=== PATIENT | female | born 1985 | race African-American/Black ===

== ENCOUNTER 2019-07-14 15:30 | Emergency (ER) | payer OTHER, SELFPAY ==
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
[2019-07-14 15:52] VITALS: BP 134/95; PULSE 91; RESP 16; TEMP 36.7; O2SAT 100
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
--- NOTE | 2019-07-14 17:30 | PC.NURSE ---
Dose of tylenol missed per this RN at discharge
== END 2019-07-14 17:10 | disposition home or self-care (01) ==
PROVIDERS: Emergency Provider Emergency Medicine
DX: S29.012A Strain of muscle and tendon of back wall of thorax, initial encounter (principal); F17.200 Nicotine dependence, unspecified, uncomplicated; V49.40XA Driver injured in collision with unspecified motor vehicles in traffic accident, initial encounter
CPT/HCPCS: 71045; 71101; 99283

== ENCOUNTER 2020-06-25 10:22 | Emergency (ER) | payer OTHER, SELFPAY ==
[2020-06-25 10:49] VITALS: BP 119/81; PULSE 103; RESP 16; TEMP 36.4; O2SAT 100
[2020-06-25] MEDS: IBUPROFEN 600 MG TABLET PO (11:59)
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
[2020-06-25 12:15] VITALS: BP 124/68; PULSE 96; RESP 17; O2SAT 99
== END 2020-06-25 12:16 | disposition home or self-care (01) ==
PROVIDERS: Emergency Provider General Practice; PCP Family Medicine
DX: M54.6 Pain in thoracic spine (principal); V44.6XXA Car passenger injured in collision with heavy transport vehicle or bus in traffic accident, initial encounter
CPT/HCPCS: 99283; A9270

== ENCOUNTER 2021-07-14 08:31 | Outpatient (CLI) | payer BC, SELFPAY ==
--- NOTE | ~2021-07-14 | US_ITS ---
EXAMINATION: US soft tissue abdomen DATE: 07/14/2021 08:50 INDICATION: Periumbilical abdominal pain. Hernia surgery July 2019. TECHNIQUE: Multiple grayscale and Doppler ultrasound images of the abdomen were obtained. COMPARISON: None FINDINGS: In the periumbilical area, the anterior abdominal wall is thin. There is no specific eviden ce of a recurrent hernia. IMPRESSION: 1. Thin anterior abdominal wall without specific evidence of recurrent hernia.. If there is high clin ical suspicion for a recurrent hernia, consider CT. Reviewed, dictated and finalized at location A. 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 Thin anterior abdominal wall without specific evidence of recurrent hernia.. If there is high clinical suspicion for a recurrent hernia, consider CT.
== END 2021-07-14 08:32 | disposition home or self-care (01) ==
LOC: ANHIMG 08:35
PROVIDERS: PCP Family Medicine; Visit Provider Physician Assistant
DX: R10.33 Periumbilical pain (principal)
CPT/HCPCS: 76705

== ENCOUNTER 2022-05-09 08:42 | Emergency (ER) | payer BC, SELFPAY ==
--- NOTE | 2022-05-09 08:48 | ED.URI ---
HPI - URI/Sore Throat General Chief Complaint: Nausea/Vomiting/Diarrhea Stated Complaint: diarrhea/abd pain/pond/ear pain Time Seen by Provider: 05/09/22 08:48 Source: patient Mode of arrival: ambulatory Limitations: no limitations History of Present Illness HPI Narrative: Mohamud is a 36-year-old female patient presenting to clinic today with complaints of fever, chills, nausea, vomiting, diarrhea, headache, and ear pain x2 days. She reports that she may have been around some sick family members around [place]. States she has vomited twice and has had diarrhea stools every time she eats. MD elicited complaint: sore throat and nasal congestion Related Data Allergies Allergy/AdvReac Type Severity Reaction Status Date / Time No Known Allergies Allergy Verified 07/14/19 15:56 Review of Systems Review of Systems: Pertinent positives per HPI. Patient denies any fever, chills, rash, visual changes, dizziness, cough, shortness of breath, chest pain, palpitations, nausea, vomiting, diarrhea, constipation, or any urinary issues. [facility] Surgical History Surgical History History of myomectomy Social History Social History Smoking status: Current some day smoker Comments At the time of my signature, I reviewed and agree with the nursing past medical, surgical, social, and family history. There is no relevant family history pertinent to the patient complaint. Exam Narrative: General: Well-developed, well nourished, in no apparent distress Head: Normocephalic, atraumatic Eyes: Pupils equally round and reactive to light bilaterally, EOM intact, sclera and conjunctive clear, no discharge, lids normal Ears: TMs intact and clear, ear canals clear, no drainage, grossly hearing normal. Nose: Nares patent, no discharge, no inflammation, no sinus tenderness. Mouth: Oral pharynx without lesions or masses, good dentition, MMM. Neck: Supple, trachea midline, no enlargement of anterior or posterior cervical nodes, no thyroid masses or goiter palpable. Cardio: Regular rate and rhythm, s1 and s2 normal, no murmur appreciated. Resp: Clear to auscultation bilaterally, no rhonchi, rales, wheezing or rubs abdomen: Soft, pliable, bowel sounds present all 4 quadrants,generalized tenderness to palpation, no organomegaly, no CVAT tenderness Course Course Emergency Course: Portions of this record may have been created with voice recognition software. Level of Care: Express Care Visit Vital Signs Vital signs: Vital Signs Temperature 36.4 C 05/09/22 08:57 Pulse Rate 100 05/09/22 08:57 Respiratory Rate 16 05/09/22 08:57 Blood Pressure 118/76 05/09/22 08:57 Pulse Oximetry 100 05/09/22 08:57 Oxygen Delivery Room Air 05/09/22 08:57 Temperature 36.4 C 05/09/22 08:57 Pulse Rate 100 05/09/22 08:57 Respiratory Rate 16 05/09/22 08:57 Blood Pressure 118/76 05/09/22 08:57 Pulse Oximetry 100 05/09/22 08:57 Oxygen Delivery Room Air 05/09/22 08:57 Vital signs reviewed MDM - URI/Sore Throat MDM Narrative Medical decision making narrative: At the time of visit patient is resting comfortably on the exam table. Patient reports that she is currently nauseous. Zofran 4 mg ODT given in the clinic today. COVID and influenza testing were negative. I suspect patient has gastroenteritis, upper respiratory infection, viral syndrome. Prescription for prednisone and Zofran was given Differential Diagnosis Differential diagnosis: Likely upper respiratory infection, otitis media, sinusitis, viral infection, bronchitis, influenza, pharyngitis and other ( COVID) Lab Data Labs: Influenza A Screen Negative Reference Range: Negative Influenza B Screen Negative Reference Range: Negat
[2022-05-09 08:57] VITALS: BP 118/76; PULSE 100; RESP 16; TEMP 36.4; O2SAT 100
[2022-05-09] MEDS: ONDANSETRON HCL ODT 4 MG TABLET SUBLINGUAL (09:14)
== END 2022-05-09 09:34 | disposition home or self-care (01) ==
PROVIDERS: Emergency Provider Nurse Practitioner Family; PCP Family Medicine
DX: K52.9 Noninfective gastroenteritis and colitis, unspecified (principal); J06.9 Acute upper respiratory infection, unspecified; B34.9 Viral infection, unspecified; Z20.822 Contact with and (suspected) exposure to COVID-19; F17.290 Nicotine dependence, other tobacco product, uncomplicated
CPT/HCPCS: 87426; 87804; 99213; A9270; C9803; G0463

== ENCOUNTER 2022-10-01 08:52 | Outpatient (CLI) | payer BC, SELFPAY ==
--- NOTE | ~2022-10-01 | MMUS_ITS ---
EXAMINATION: MM diagnostic faizan BI w duncan, US breast BI limited HISTORY: Bilateral breast pain and mass of the lower right breast. TECHNIQUE: Craniocaudal, mediolateral, and mediolateral oblique 3-D tomosynthesis images of the cordelia ts were performed and synthetic 2-D images were generated. CAD analysis was submitted and interpreted . High resolution limited bilateral breast ultrasound was performed. COMPARISON: No prior mammogram is currently available for comparison. BREAST PARENCHYMAL COMPOSITION: The breasts are heterogeneously dense, which may obscure small masses . FINDINGS: MAMMOGRAPHIC FINDINGS: Right breast: There is a 2.1 x 1.5 cm oval, circumscribed, equal density mass in the posterior third of the lower inner breast at the 5:00 location, 12 cm from the nipple. A 1.3 x 0.9 cm mass with simil ar mammographic features is present in the middle third of the breast at the 4:00 location in the inn er breast 5 cm from the nipple. A 0.9 x 0.6 cm mass with similar mammographic features is present in the posterior third of the lower-outer breast at the 7:00 location, 14 cm from the nipple. Left breast: No suspicious mass, calcification, or architectural distortion are identified. No mammog raphic correlate is identified for the patient's reported left breast pain. ULTRASOUND: Right breast: There is a 2.4 x 0.7 cm oval, circumscribed, parallel, hypoechoic mass with internal va scularity and mild posterior acoustic shadowing at the 6:00 location, 8 cm from the nipple. There is a 1.3 x 0.8 cm oval, circumscribed, parallel, hypoechoic mass with no posterior features or internal vascularity at the 2:00 location, 6 cm from the nipple. There is a 1.0 x 0.5 cm mass with similar son ographic features at the 6:30 location, 6.5 cm from the nipple. There is a 0.5 x 0.7 cm mass with sim ilar sonographic features at the 9:00 location, 9.5 cm from the nipple. There is a 2.1 x 0.9 cm mass with similar sonographic features at the 9:00 location, 10 cm from the nipple. Left breast: There is a 1.0 x 0.4 cm oval, circumscribed, parallel, hypoechoic mass with no posterior features or internal vascularity at the 12:00 location, 6 cm from the nipple. IMPRESSION: 1. Probably benign bilateral breast masses. 2. Recommend 6 month follow-up bilateral diagnostic mammogram and ultrasound. BI-RADS category 3, probably benign findings. Reviewed, dictated and finalized at location A. IMPRESSION: 1. Probably benign bilateral breast masses. 2. Recommend 6 month follow-up bilateral diagnostic mammogram and ultrasound. BI-RADS category 3, probably benign findings.
== END 2022-10-01 08:53 ==
PROVIDERS: PCP Family Medicine; Visit Provider Family Medicine
DX: N64.4 Mastodynia (principal); R92.8 Other abnormal and inconclusive findings on diagnostic imaging of breast
CPT/HCPCS: 76642; 77062; 77066; G0279

== ENCOUNTER 2022-12-04 17:34 | Emergency (ER) | payer BC, SELFPAY ==
[2022-12-04 17:44] VITALS: BP 136/99; PULSE 76; RESP 20; TEMP 37.1; O2SAT 100
--- NOTE | 2022-12-04 18:00 | ED.URI ---
HPI - URI/Sore Throat General Chief Complaint: Upper Respiratory Infection Stated Complaint: congestion,chills, short of breath Time Seen by Provider: 12/04/22 18:00 Source: patient and RN notes reviewed Mode of arrival: ambulatory Limitations: no limitations History of Present Illness HPI Narrative: 36-year-old female presents with concern for 4 day history of nasal congestion, cough, feeling the shortness of breath with exertion, general malaise, mild sore throat. She reports she has been taking some [id number] and medications with mild relief. She denies known sick contact MD elicited complaint: cough, rhinorrhea and nasal congestion Related Data Home Medications Medication Instructions Recorded Confirmed phentermine 37.5 mg tablet 37.5 mg PO DAILY 12/04/22 12/04/22 Allergies Allergy/AdvReac Type Severity Reaction Status Date / Time No Known Allergies Allergy Verified 12/04/22 17:37 Review of Systems Review of Systems: CONSTITUTIONAL: Reports malaise, chills, sweats EYES: Denies visual changes, redness, or discharge. ENT: Reports rhinorrhea, congestion, and sore throat. Denies sinus pain, otalgia CARDIOVASCULAR: Denies chest pain, palpitations, or edema. RESPIRATORY: Reports cough and dyspnea. GASTROINTESTINAL: Denies abdominal pain, nausea, vomiting, diarrhea SKIN: Denies rash or itching. MUSCULOSKELETAL: Reports myalgia. NEUROLOGIC: Denies headache. All systems reviewed & are unremarkable except as noted in HPI and below PMFSH Surgical History Surgical History History of myomectomy Social History Social History Smoking status: Current some day smoker Comments At time of signature, agree with nursing past medical, surgical, social and family history. There is no relevant family history pertinent to the presenting complaint Exam Narrative: GENERAL: Nontoxic-appearing and in no acute distress. HEAD: Normocephalic EYES: PERRLA, conjunctivae clear ENT: Nares clear, turbinates edematous and erythematous, clear discharge. Mucous membranes moist. TM pearly griffin with sharp light reflex bilaterally; no tragal tenderness. Oropharynx not erythematous without lesions. Tonsils not enlarged and without exudate, no drooling, no hoarseness, no trismus, uvula midline. NECK: Supple. No lymphadenopathy CHEST: Clear to auscultation, breath sounds equal. No wheezing, rhonchi, rales, or stridor. No respiratory distress, speaks in full sentences. HEART: Regular rate and rhythm. No murmur heard. SKIN: Warm, dry, no rash. NEURO: Alert and oriented x3. PSYCH: Normal mood and affect Course Course Emergency Course: Patient is aware of diagnosis, understands and agrees to treatment plan. Anticipatory guidance given. Patient agrees to follow-up as directed and is aware of reasons to seek care at the emergency department. Portions of this record may have been created with voice recognition software Level of Care: Express Care Visit Vital Signs Vital signs: Vital Signs Temperature 98.7 F 12/04/22 17:44 Pulse Rate 76 12/04/22 17:44 Respiratory Rate 20 12/04/22 17:44 Blood Pressure 136/99 H 12/04/22 17:44 Pulse Oximetry 100 12/04/22 17:44 Temperature 98.7 F 12/04/22 17:44 Pulse Rate 76 12/04/22 17:44 Respiratory Rate 20 12/04/22 17:44 Blood Pressure 136/99 H 12/04/22 17:44 Pulse Oximetry 100 12/04/22 17:44 Reviewed. MDM - URI/Sore Throat MDM Narrative Medical decision making narrative: Differential diagnosis considered: Ponce virus, strep pharyngitis, allergic rhinitis, upper respiratory tract infection, sinusitis, rhinosinusitis, nasopharyngitis. viral pharyngitis, otitis media, otitis externa, pneumonia, bronchitis, viral cough syndrome, viral syndrome, and influenza. Exam findings show no acute concerns or changes; patient is non-toxic appeari
== END 2022-12-04 18:25 | disposition home or self-care (01) ==
PROVIDERS: Emergency Provider Nurse Practitioner; PCP Family Medicine
DX: J06.9 Acute upper respiratory infection, unspecified (principal); Z20.822 Contact with and (suspected) exposure to COVID-19; F17.200 Nicotine dependence, unspecified, uncomplicated
CPT/HCPCS: 87081; 87426; 87804; 87880; 99213; C9803; G0463

== ENCOUNTER 2023-02-21 14:44 | Emergency (ER) | payer BC, SELFPAY ==
[2023-02-21 14:55] VITALS: BP 117/76; PULSE 78; RESP 14; TEMP 36.7; O2SAT 100
--- NOTE | 2023-02-21 15:34 | ED.SKABFB ---
HPI - Skin/Abscess/Foreign Bdy General Chief complaint: Skin/Abscess/Foreign Body Stated complaint: swelling around mouth,itching on body Time Seen by Provider: 02/21/23 15:29 Source: patient and RN notes reviewed Mode of arrival: ambulatory Limitations: no limitations History of Present Illness HPI narrative: Patient presents today complaining of hives and itching to her entire body. Symptoms began this morning and have waxed and waned throughout the day. Patient has an extensive history of intermittent hives and has undergone allergy testing, but is awaiting a doctor's appointment for her results. She has tried Benadryl and Zyrtec today with minimal relief. She denies shortness of breath or difficulty swallowing, although she is feeling some swelling in her face that was more prominent earlier today. She did contact her doctor's office and they told her to come to urgent care for treatment as she could not be seen today. Related Data Home Medications Medication Instructions Recorded Confirmed sertraline 100 mg tablet 100 mg PO DAILY 02/21/23 02/21/23 trazodone 100 mg tablet 100 mg PO DAILY 02/21/23 02/21/23 Allergies Allergy/AdvReac Type Severity Reaction Status Date / Time No Known Allergies Allergy Verified 02/21/23 14:52 Review of Systems Review of Systems: CONSTITUTIONAL: Denies body aches, fever, chills, or sweats. EYES: Denies visual changes, redness, or discharge. ENT: Denies rhinorrhea, congestion, sore throat, or otalgia. CARDIOVASCULAR: Denies chest pain, palpitations, or edema. RESPIRATORY: Denies cough or dyspnea. GASTROINTESTINAL: Denies abdominal pain, nausea, vomiting, or diarrhea. GENITOURINARY: Denies dysuria or hematuria. SKIN: + hives MUSCULOSKELETAL: Denies back pain, joint pain, or myalgia. NEUROLOGIC: Denies headache, numbness, tingling, or weakness. PSYCH: Denies depression or anxiety. [facility] Surgical History Surgical History History of myomectomy Social History Social History Smoking status: Current some day smoker Comments At time of signature, I have reviewed and agree with nursing past medical, surgical, social and family history unless otherwise noted. Please see nursing chart for further information. There is no relevant family history pertinent to the presenting complaint Exam Narrative: GENERAL: Well-appearing, well-nourished, and in no acute distress. HEAD: Normocephalic, atraumatic. EYES: EOMI. No redness or drainage. Conjunctivae normal. ENT: Mucous membranes pink and moist. Throat normal. Uvula midline. NECK: Normal AROM. Supple. No lymphadenopathy. CHEST: No respiratory distress. Clear to auscultation. HEART: Regular rate and rhythm. No murmur appreciated. Normal peripheral pulses. EXTREMITIES: Normal range of motion. No edema. SKIN: Warm, dry. Capillary refill normal. Normal skin turgor. Very faint erythematous rash on the forehead into left cheek. Patient is scratching profusely to her abdomen, scalp, and right leg. No obvious rash noted to these areas, but patient states her skin is very pruritic NEURO: No focal deficits. Alert and oriented x3. Gait steady. PSYCH: Normal affect. No signs of depression or anxiety. Course Course Level of Care: Express Care Visit Vital Signs Vital signs: Vital Signs Temperature 98.1 F 02/21/23 14:55 Pulse Rate 78 02/21/23 14:55 Respiratory Rate 14 02/21/23 14:55 Blood Pressure 117/76 02/21/23 14:55 Pulse Oximetry 100 02/21/23 14:55 Temperature 98.1 F 02/21/23 14:55 Pulse Rate 78 02/21/23 14:55 Respiratory Rate 14 02/21/23 14:55 Blood Pressure 117/76 02/21/23 14:55 Pulse Oximetry 100 02/21/23 14:55 Reviewed MDM - Skin/Abscess/Foreign Bdy MDM Narrative Medical decision making narrative: Will start patient on a course of prednisone this. Sh
== END 2023-02-21 15:46 | disposition home or self-care (01) ==
PROVIDERS: Emergency Provider Nurse Practitioner; PCP Family Medicine
DX: L50.9 Urticaria, unspecified (principal); F17.200 Nicotine dependence, unspecified, uncomplicated
CPT/HCPCS: 99213; G0463

== ENCOUNTER 2023-06-12 08:16 | Outpatient (CLI) | payer BC, SELFPAY ==
--- NOTE | ~2023-06-12 | MMUS_ITS ---
EXAMINATION: MM diagnostic faizan BI w duncan, US breast BI limited HISTORY: Follow-up bilateral breast masses TECHNIQUE: Additional 3-D tomosynthesis images of the breasts were performed and synthetic 2-D images were generated. CAD analysis was submitted and interpreted. High resolution limited bilateral breast ultrasound was performed. COMPARISON: 10/01/2022 BREAST PARENCHYMAL COMPOSITION: Breast composed of scattered areas of fibroglandular density FINDINGS: MAMMOGRAPHIC FINDINGS: The breasts are stable. No new masses, calcifications or architectural distortion. There are stable b enign-appearing masses in the right breast. There are bilateral axillary lymph nodes which are unchan ged. ULTRASOUND: Limited right breast ultrasound: At 2:00, 6 cm from the nipple there is an oval parallel oriented hyp oechoic 1.4 cm mass without significant change from prior examination. At 6:00, 8 cm from the nipple, there is an oval parallel oriented hypoechoic mass with posterior shadowing measuring 2.4 cm, unchan ged. At 7:00, 6.5 cm from the nipple, there is an oval hypoechoic 9 mm mass without significant inter lauro change. At 9:00, 9 cm from the nipple, there is a round shadowing 7 mm mass, stable. At 9:00, 10 cm from the nipple, there is a parallel oriented hypoechoic bilobed mass measuring 1.9 cm, unchanged. At 9:00, 10 cm from the nipple there is a 1.2 cm cyst. Limited left breast ultrasound: At 12:00, 6 cm from the nipple there is an oval hypoechoic 8 mm mass with parallel orientation, stable. Also at 12:00, 6 cm from the nipple, there is a second parallel or iented hypoechoic mass measuring 7 mm, likely benign, not definitely seen on prior study. IMPRESSION: 1. Stable likely benign bilateral breast masses. 2. Recommend 6 month follow-up bilateral breast ultrasound. BI-RADS category 3, probably benign findings. Reviewed, dictated and finalized at location A. ECT SURVEYOR IMPRESSION: 1. Stable likely benign bilateral breast masses. 2. Recommend 6 month follow-up bilateral breast ultrasound. BI-RADS category 3, probably benign findings.
== END 2023-06-12 08:17 ==
PROVIDERS: Visit Provider Family Medicine
DX: R92.8 Other abnormal and inconclusive findings on diagnostic imaging of breast (principal)
CPT/HCPCS: 76642; 77062; 77066; G0279

== ENCOUNTER 2023-08-06 09:39 | Emergency (ER) | payer BC, SELFPAY ==
[2023-08-06 09:49] VITALS: BP 131/86; PULSE 79; RESP 16; TEMP 37; O2SAT 99
== END 2023-08-06 10:25 | disposition left against medical advice (07) ==
LOC: EXPCOLL 09:43
PROVIDERS: Emergency Provider Nurse Practitioner; PCP Family Medicine
DX: Z53.21 Procedure and treatment not carried out due to patient leaving prior to being seen by health care provider (principal)
CPT/HCPCS: 99199

== ENCOUNTER 2023-08-06 10:46 | Emergency (ER) | payer BC, SELFPAY ==
--- NOTE | ~2023-08-06 | CT_ITS ---
EXAMINATION: CT abdomen pelvis w con DATE: 08/06/2023 12:17 INDICATION: Left-sided abdominal pain TECHNIQUE: Computed tomography (CT) of the abdomen and pelvis was performed with 100 mL Omnipaque-350 intravenous contrast. Automated exposure control and iterative reconstruction technique were employe d. The dose-length product was 563.49 mGy-cm. COMPARISON: None FINDINGS: Lung bases are clear. Heart size is normal. No pericardial or pleural effusion. Liver, gallbladder, s pleen, pancreas, bilateral adrenal glands and right kidney are normal. 7 mm indeterminate intermediat e attenuation lesion at the left kidney which could represent a hemorrhagic cyst or solid neoplasm. B ladder is normal. A there are at least 3 uterine fibroids the largest left-sided subserosal fibroid m easuring 7.9 cm which is mass effect upon the uterus and bladder. Bowels including the appendix are n ormal. Postoperative change of prior ventral hernia mesh repair. There appears be residual supraumbil ical herniated fat superficial to the mesh repair. No free intraperitoneal gas or fluid. No pathologi lele enlarged abdominal or pelvic lymphadenopathy. Bones are unremarkable. IMPRESSION: 1. No acute intra-abdominal/pelvic process. 2. Fibroid uterus. 2. Small amount of residual tumor umbilical hernia and fat superficial to a prior ventral hernia mesh repair. Reviewed, dictated and finalized at location A. IMPRESSION: 1. No acute intra-abdominal/pelvic process. 2. Fibroid uterus. 2. Small amount of residual tumor umbilical hernia and fat superficial to a zahraa or ventral hernia mesh repair.
[2023-08-06 10:56] VITALS: BP 122/79; PULSE 86; RESP 18; O2SAT 100
[2023-08-06 11:15] LABS: Basophils Percent Auto 0.3 % (0.2-1.2); Eosinophils Absolute Auto 0.2 K/mm3 (0-0.3); Eosinophils Percent Auto 2.2 % (0-4.4); Hematocrit 38.1 % (37.0-47.0); Immature Granulocyte Absolute 0.01 K/mm3 (0.00-0.031); Immature Granulocyte Percent A 0.1 % (0-0.5); Lymphocytes Absolute Auto 2.88 K/mm3 (0.9-3.2); Lymphocytes Percent Auto 28.6 % (18.3-44.2); Mean Corpuscular HGB Conc 31.5 g/dl (32-36); Mean Corpuscular Volume 76.4 fl (80-100); Mean Platelet Volume 9.7 fl (7.4-10.4); Monocytes Absolute Auto 0.6 K/mm3 (0.1-0.6); Neutrophils Absolute Auto 6.3 K/mm3 (1.3-6.7); Neutrophils Percent Auto 62.8 % (45.5-73.1); Platelet Count Result 557 k/mm3 (150-375); Red Blood Count 4.99 M/mm3 (4.2-5.4); Red Cell Distribution Width 13.8 % (11.5-14.5); White Blood Count 10.1 K/mm3 (4.5-10.0)
[2023-08-06 11:26] LABS: Alanine Aminotransferase 25 U/L (6-35); Albumin Level 4.4 g/dL (3.5-5.1); Alkaline Phosphatase 87 U/L (38-126); Anion Gap 6 mmol/L (4-12); Aspartate Amino Transferase 27 U/L (14-36); Blood Urea Nitrogen 13 mg/dL (7-17); Calcium 9.5 mg/dL (8.4-10.2); Carbon Dioxide 24 mmol/L (22-30); Chloride 106 mmol/L (98-107); Estimated CRCL calculation 161 ml/min; Estimated Glomerular Filt Rate > 60; Glucose 107 mg/dL (65-110); Lipase 37 U/L (23-300); Potassium 3.9 mmol/L (3.4-5.0); Sodium 136 mmol/L (137-145)
[2023-08-06 11:44] LABS: Bacteria Urine 3+ /hpf; RBC Urine >100 /hpf (0-2); Squamous Epithelial Cell Urine Few /hpf (Few)
[2023-08-06 11:46] LABS: Appearance Urine Clear (Clear); Color Urine Yellow (Yellow); pH Urine 5.5 (5.0-9.0)
[2023-08-06 11:47] LABS: Bilirubin Urine 1+ (Negative); Blood Urine 3+ (Negative); Glucose Urine UA Negative (Negative); Ketones Urine 1+ mg/dL (Negative); Leukocyte Esterase Ur Negative LEU/UL (Negative); Nitrate Urine Negative (Negative); Protein Urine 2+ mg/dL (Negative); Specific Grav Ur >= 1.030 (1.001-1.035); Urobilinogen Urine 0.2 mg/dL (<2.0)
[2023-08-06 12:01] LABS: Add Urine Microscopic? YES
[2023-08-06] MEDS: KETOROLAC 15 MG/ML VIAL (*BKC) IV PUSH (13:00)
[2023-08-06 13:24] VITALS: BP 146/94; PULSE 83; RESP 20; O2SAT 100
--- NOTE | 2023-08-06 13:32 | ED.ABDPAIN ---
HPI - Abdominal Pain General Chief Complaint: Abdominal Pain Stated Complaint: abd pain Time Seen by Provider: 08/06/23 11:04 Source: patient Mode of arrival: ambulatory Limitations: no limitations History of Present Illness HPI narrative: 37-year-old otherwise healthy here with a complaint of left-sided abdominal pain which started about 5 days ago. She denies any nausea, vomiting. No history of fever or chills. She is presently on her menstrual period. No previous history of kidney stones or diverticulitis MD elicited complaint: abdominal pain Pertinent past history: none Onset (ago): day(s) (5) Pain Consistency: constant Location: LLQ and L flank Severity: moderate Quality: aching Radiation: none Migration to: no migration Exacerbating factors: nothing Related Data Home Medications Medication Instructions Recorded Confirmed trazodone 100 mg tablet 100 mg PO PRN 02/21/23 08/06/23 Allergies Allergy/AdvReac Type Severity Reaction Status Date / Time No Known Allergies Allergy Verified 08/06/23 11:01 Review of Systems Review of Systems: All systems reviewed & are unremarkable except as noted in HPI and below Eyes: Eyes: Reports no additional eye complaints ENT: Reports system reviewed and no additional complaints, except as documented Cardiovascular: Cardiovascular: Reports no additional cardiovascular complaints Respiratory: Respiratory: Reports no additional respiratory complaints Gastrointestinal: Gastrointestinal: Reports as per HPI Musculoskeletal: Musculoskeletal: Reports no additional musculoskeletal complaints Integumentary/Breasts: Skin/Breast: Reports system reviewed and no additional complaints, except as docu [facility] Surgical History Surgical History History of myomectomy Social History Social History Smoking status: Current some day smoker Exam Narrative: GENERAL: Well-appearing, well-nourished, and in no acute distress. HEAD: Normocephalic, atraumatic. EYES: PERRLA and EOMI. ENT: Nares clear, no rhinorrhea or epistaxis. Mucous membranes moist. NECK: Supple. CHEST: Clear to auscultation. No respiratory distress. HEART: Regular rate and rhythm. No murmur heard. Normal peripheral pulses. ABDOMEN: Soft, nontender, nondistended, normal active bowel sounds. EXTREMITIES: Normal range of motion. No edema. SKIN: Warm, dry, no rash. NEURO: No focal deficits. Alert and oriented x3. PSYCH: Normal mood and affect. Course Course Emergency Course: Notified patient about her lab work, CT finding cause of her pain is unknown. Advised to follow-up with the primary doctor. Vital Signs Vital signs: Vital Signs Pulse Rate 86 08/06/23 10:56 Respiratory Rate 18 08/06/23 10:56 Blood Pressure 122/79 08/06/23 10:56 Pulse Oximetry 100 08/06/23 10:56 Oxygen Delivery Room Air 08/06/23 10:56 Pulse Rate 83 08/06/23 13:24 Respiratory Rate 20 08/06/23 13:24 Blood Pressure 146/94 H 08/06/23 13:24 Pulse Oximetry 100 08/06/23 13:24 Oxygen Delivery Room Air 08/06/23 10:56 MDM - Abdominal Pain Differential Diagnosis Differential diagnosis: Likely abdominal pain, calculus of kidney, diverticulitis and gastroenteritis Lab Data Attestation: I reviewed the patient's lab results. 08/06/23 11:09 08/06/23 11:09 Labs: Lab Results 08/06/23 08/06/23 Range/Units 11:09 11:29 WBC 10.1 H (4.5-10.0) K/mm3 RBC 4.99 (4.2-5.4) M/mm3 Hgb 12.0 (12.0-15.0) g/dL Hct 38.1 (37.0-47.0) % MCV 76.4 L (80-100) fl MCH 24.0 L (26-34) pg MCHC 31.5 L (32-36) g/dl RDW 13.8 (11.5-14.5) % Plt Count 557 H (150-375) k/mm3 MPV 9.7 (7.4-10.4) fl Immature Gran % (Auto) 0.1 (0-0.5) % Neut % (Auto) 62.8 (45.5-73.1) % Lymph % (Auto) 28.6 (18.3-44.2) % [place] % (Auto) 6.0 (2.6-8.5) % Eos % (
== END 2023-08-06 14:04 | disposition home or self-care (01) ==
PROVIDERS: Physician Assistant; Emergency Provider Family Medicine; PCP Family Medicine
DX: R10.9 Unspecified abdominal pain (principal); F17.210 Nicotine dependence, cigarettes, uncomplicated
CPT/HCPCS: 36415; 74177; 80053; 81001; 81025; 83690; 85025; 87086; 87088; 96374; 99284; J1885; Q9967

== ENCOUNTER 2024-06-13 14:12 | Emergency (ER) | payer BC, SELFPAY ==
[2024-06-13 14:35] VITALS: BP 142/84; PULSE 113; RESP 18; TEMP 37.2; O2SAT 100
--- NOTE | 2024-06-13 14:40 | ED_ITS ---
HPI - Skin/Abscess/Foreign Bdy General Chief complaint: Skin/Abscess/Foreign Body Stated complaint: Allergic Reaction Source: patient Mode of arrival: ambulatory Limitations: no limitations History of Present Illness HPI narrative: 38 y/o female presented for c/o 'hives.' Onset 0100. States she has been itching with hives over her entire body. Took Benadryl when she woke at 0100. States the arm hives have improved but itching 'everywhere' and says her lips were swollen earlier today. Pt reports a history of intermittent hives and has undergone allergy testing. Does not take daily antihistamine. Denies lip, tongue, or throat swelling, shortness of breath or wheezing. Denies changes to soap, detergent, lotion, or any other exposures. No one else in the house or any contacts with similar symptoms. Requesting steroid shot. Related Data Home Medications ?Medication ?Instructions ?Recorded ?Confirmed ?Last Taken ?Type trazodone 100 mg tablet 100 mg PO PRN 02/21/23 08/06/23 Unknown History Allergies Allergy/AdvReac Type Severity Reaction Status Date / Time No Known Allergies Allergy Verified 06/13/24 14:18 Review of Systems Review of Systems: CONSTITUTIONAL: Denies body aches, fever, chills, or sweats. EYES: Denies visual changes, redness, or discharge. ENT: Denies rhinorrhea, congestion CARDIOVASCULAR: Denies chest pain, palpitations, or edema. RESPIRATORY: Denies cough or dyspnea. GASTROINTESTINAL: Denies abdominal pain, nausea, vomiting, or diarrhea. SKIN: reports itching and hives MUSCULOSKELETAL: Denies back pain, joint pain, or myalgia. NEUROLOGIC: Denies headache, numbness, tingling, or weakness. [facility] Surgical History Surgical History History of myomectomy Social History Social History Smoking status: Current some day smoker Comments At time of signature, I have reviewed and agree with nursing past medical, surgical, social and family history unless otherwise noted. Please see nursing chart for further information. There is no relevant family history pertinent to the presenting complaint Exam Narrative: GENERAL: Well-appearing HEAD: Normocephalic, atraumatic. EYES: conjunctivae clear, and EOMI. ENT: Mucous membranes moist. Oropharynx without edema, erythema or lesions. NECK: Supple. No lymphadenopathy CHEST: Clear to auscultation. HEART: Regular rate and rhythm. SKIN: Warm, dry. No apparent rash or hives noted to the arms face or abdomen. Evidence of scratching. Patient is scratching her arms and legs. NEURO: Alert and oriented x3. Course Course Emergency Course: Patient is aware of diagnosis, understands and agrees to treatment plan. Anticipatory guidance given. Patient agrees to follow-up as directed and is aware of reasons to seek care at the emergency department. Portions of this record may have been created with voice recognition software Level of Care: Express Care Visit Vital Signs Vital signs: Reviewed MDM - Skin/Abscess/Foreign Bdy MDM Narrative Medical decision making narrative: Discussed physical exam findings; no apparent urticaria noted on exam. Advised RX of oral steroids. Advised supportive measures and signs/symptoms to go to the ER. Pt is appropriate for outpt treatment and f/u. Differential Diagnosis Differential diagnosis: Likely abscess of skin or subcutaneous tissue, urticaria, herpes zoster, cellulitis and contact dermatitis Discharge Plan Discharge Clinical Impression: Pruritus Patient Disposition: Home, Self-Care Condition: Stable Instructions: Antibiotic Form, Urticaria (ED) Additional Instructions: Take steroids and Pepcid as directed. Benadryl every 8 hours as needed recommend starting daily Zyrtec Cool compresses to the sites of itching, avoid hot water. Avoid scratching to reduce the risk of infection Follow up with your primary care provider in 3 days Go to the ER for worsening symptoms or concerns (lip, tongue, throat swelling/itching, trouble breathing etc) Patient Language: [place] Prescriptions: New famotidine [Pepcid] 40 mg tablet 40 mg PO DAILY Qty: 10 0RF prednisone 50 mg tablet 50 mg PO DAILY Qty: 5 0RF No Action trazodone 100 mg tablet 100 mg PO PRN dicyclomine 20 mg tablet 20 mg PO QID PRN (Reason: abdominal pain) Qty: 30 0RF Follow-up/Referrals: Gene,Ghazal Roblero NP [Primary Care Provider] -
== END 2024-06-13 14:58 | disposition home or self-care (01) ==
PROVIDERS: Emergency Provider Nurse Practitioner Family; PCP Nurse Practitioner Family
DX: L29.9 Pruritus, unspecified (principal); F17.200 Nicotine dependence, unspecified, uncomplicated
CPT/HCPCS: 99213; G0463

== ENCOUNTER 2024-07-10 14:54 | Emergency (ER) | payer BC, SELFPAY ==
[2024-07-10 15:01] VITALS: BP 146/88; PULSE 110; RESP 18; TEMP 36.9; O2SAT 100
--- NOTE | 2024-07-10 15:17 | ED.NAVMDI ---
HPI - Nausea/Vomiting/Diarrhea General Chief complaint: Nausea/Vomiting/Diarrhea Stated complaint: Vomiting Time Seen by Provider: 07/10/24 15:17 Source: patient Mode of arrival: ambulatory Limitations: no limitations History of Present Illness HPI Narrative: 38-year-old female presents with complaint of nausea vomiting, fatigue, abdominal cramping for 3 days. Started after eating out. Afebrile. Has not vomited since yesterday but states this is due because she has not had anything to eat or drink. Only able to chew on ice chips. Patient is well-appearing. Sitting up on exam table. All systems reviewed and negative except as noted above. Related Data Allergies Allergy/AdvReac Type Severity Reaction Status Date / Time No Known Allergies Allergy Verified 07/10/24 15:09 Review of Systems Review of Systems: CONSTITUTIONAL: Denies fever, chills, or sweats. EYES: Denies visual changes, redness, or discharge. ENT: Denies rhinorrhea, congestion, sore throat, or otalgia. CARDIOVASCULAR: Denies chest pain, palpitations, or edema. RESPIRATORY: Denies cough or dyspnea. GASTROINTESTINAL: Denies abdominal pain . Reports nausea, vomiting. Denies diarrhea. GENITOURINARY: Denies dysuria or hematuria. SKIN: Denies rash or itching. MUSCULOSKELETAL: Denies back pain, joint pain, or myalgia. NEUROLOGIC: Denies headache, numbness, or weakness. PSYCHIATRIC: Denies anxiety or depression. All other systems reviewed are negative, except as documented in HPI. [facility] Surgical History Surgical History History of myomectomy Social History Social History Smoking status: Current some day smoker Comments At time of signature, agree with nursing past medical, surgical, social and family history. There is no relevant family history pertinent to the presenting complaint. Exam Narrative: GENERAL: This is a well-nourished, well-developed patient, in no apparent distress. HEAD: normocephalic, atraumatic. EYES: PERRL. Sclera clear/white. Vision is grossly intact. EARS: External ears normal, auditory canals clear and without drainage, TMs normal without perforation. Hearing grossly intact. NOSE: External nose normal with no obvious nasal discharge, nares without redness, no rhinorrhea. THROAT: Mucous membranes moist, posterior pharynx clear. NECK: Neck supple, non-tender without lymphadenopathy, masses or thyromegaly. CARDIOVASCULAR: Regular rate and rhythm without murmurs, gallops, or rubs. RESPIRATORY: Clear to auscultation. Breath sounds equal bilaterally. No wheezes, rales, or rhonchi. GASTROINTESTINAL: Abdomen soft, non-tender, nondistended. Bowel sounds are active. No hepato-splenomegaly, or palpable masses. No guarding. SKIN: warm, Dry, intact with no suspicious lesions or rash, good texture and turgor. NEURO: awake, alert, and oriented to person, place and time. There were no obvious focal neurologic abnormalities. EXTREMITIES: No joint tenderness, effusion, or edema noted. Course Course Level of Care: Express [facility] Visit Vital Signs Vital signs: Vital Signs Temperature 36.9 C 07/10/24 15:01 Pulse Rate 110 H 07/10/24 15:01 Respiratory Rate 18 07/10/24 15:01 Blood Pressure 146/88 H 07/10/24 15:01 Pulse Oximetry 100 07/10/24 15:01 Oxygen Delivery Room Air 07/10/24 15:01 Temperature 36.9 C 07/10/24 15:01 Pulse Rate 110 H 07/10/24 15:01 Respiratory Rate 18 07/10/24 15:01 Blood Pressure 146/88 H 07/10/24 15:01 Pulse Oximetry 100 07/10/24 15:01 Oxygen Delivery Room Air 07/10/24 15:01 reviewed MDM - Nausea/Vomiting/Diarrhea MDM Narrative Medical decision making narrative: patient is well-appearing, nontoxic. Hemodynamically stable. Patient given Zofran to treat nausea vomiting. Was able to keep down water prior to being discharged from [facility]. She had no abdominal tenderness on exam. Please be advised this is a medical document. It is intended for [id number] communication. It is written in medical language and may contain unfamiliar abbreviations or verbiage. Medical documents are intended to carry relevant information, facts as evident, and the clinical opinion of the practitioner at the time of the encounter. This report may have been done utilizing a voice recognition system. Attempts have been made to correct errors. However, there may be uncorrected grammatical, spelling, and recognition errors present. The file time of this note does not necessarily represent the time of service. Differential Diagnosis Differential diagnosis: Likely food poisoning and gastroenteritis Discharge Plan Discharge Clinical Impression: Viral gastroenteritis Patient Disposition: Home, Self-Care Condition: Stable Instructions: Gastroenteritis (ED) Additional Instructions: Take Zofran as prescribed. This medication is used to treat nausea and vomiting. Take ibuprofen or Tylenol every 6-8 hours as needed for pain. Drink at least 64 oz of water a day. Follow-up with your primary care physician if symptoms are not improving. Patient Language: [place] Prescriptions: New ondansetron 4 mg tablet,disintegrating 4 mg PO Q8H PRN (Reason: nausea and vomiting) Qty: 12 0RF Follow-up/Referrals: Gene,Ghaazl Roblero NP [Primary Care Provider] - Stand Alone Forms: Work/School Release IP Time of Disposition: 16:09
[2024-07-10] MEDS: ONDANSETRON HCL ODT 4 MG TABLET SUBLINGUAL (15:28)
== END 2024-07-10 16:15 | disposition home or self-care (01) ==
PROVIDERS: Emergency Provider Nurse Practitioner Family; PCP Nurse Practitioner Family
DX: A08.4 Viral intestinal infection, unspecified (principal); F17.200 Nicotine dependence, unspecified, uncomplicated
CPT/HCPCS: 99213; A9270; G0463

== ENCOUNTER 2025-01-25 12:11 | Outpatient (CLI) | payer BC, SELFPAY ==
[2025-01-25 12:44] LABS: Hematocrit 36.9 % (37.0-47.0); Hemoglobin 11.3 g/dL (12.0-15.0); Mean Corpuscular HGB Conc 30.6 g/dl (32-36); Mean Corpuscular Hemoglobin 21.8 pg (26-34); Mean Corpuscular Volume 71.1 fl (80-100); Platelet Count Result 534 k/mm3 (150-375); Red Blood Count 5.19 M/mm3 (4.2-5.4); White Blood Count 10.8 K/mm3 (4.5-10.0)
[2025-01-25 13:08] LABS: Alanine Aminotransferase 37 U/L (6-35); Albumin Level 4.0 g/dL (3.5-5.1); Alkaline Phosphatase 153 U/L (38-126); Anion Gap 9 mmol/L (4-12); Aspartate Amino Transferase 37 U/L (14-36); Bilirubin,Total 0.7 mg/dL (0.2-1.3); Blood Urea Nitrogen 15 mg/dL (7-17); Calcium 9.5 mg/dL (8.4-10.2); Carbon Dioxide 22 mmol/L (22-30); Chloride 107 mmol/L (98-107); Estimated Glomerular Filt Rate > 60; Glucose 93 mg/dL (65-110); Potassium 3.9 mmol/L (3.4-5.0); Sodium 138 mmol/L (137-145); Total Protein 7.9 g/dL (6.3-8.2)
[2025-01-25 13:14] LABS: SPREG INTERNAL CONTROL Positive; Serum Qual hCG Negative
[2025-01-25 13:34] LABS: Free T4 Free Thyroxine 6.48 ng/dL (0.78-2.19)
[2025-01-25 13:43] LABS: Thyroid Stimulating Hormone < 0.015 uIU/mL (0.465-4.680)
--- OUTSIDE RECORDS SUMMARY | 2025-01-25 14:13 | XMS_ITS | Clinical Summary ---
Author Organization [facility] Address [address] [place] [address] Care Team Providers Care Ecommerce Merchandising Manager Name Role Phone Celia Galicia RN Unavailable [phone] Gaye Jeffers MD Primary Care Provider [phone] Source Comments [facility],non-owned Affiliates and Associated Physician Practices is amultiple site organization consisting of ambulatory clinics and hospital sitesin [place], [place], [place] and [place]. This disclosure is being madepursuant to the Care Everywhere program and may not contain all information available regarding this patient. Last updated 18.[facility] Allergies No known active allergies Medications * Be aware that medications may not be up to date on this document. Alwaysverify current medications with the patient. Multiple Vitamin (MULTI-VITAMINS ) TABS Take 1 tablet by mouth Active WILLIAM ROOT PO Active Probiotic Product (PROBIOTIC-10 PO) Active Turmeric (QC TUMERIC COMPLEX PO) Active HYDROcodone-kaylah taminophen (NORCO) 5-325 MG tablet Take 1 (one) tablet by mouth every 6 hours as needed for Pain 30 tablet 2 Active Additional Information Patient not taking.Reported on 09/06/2021 docusate sodium (COLACE) 100 MG capsule Take 1 (one) capsule by mouth 2 times daily as needed for Constipation (relief of difficult bowel movements) 2 Active Additional Information Patient not taking.Reported on 09/06/2021 sertraline (Zoloft) 100 MG tablet 1/2 tab po qhs with food x 2 weeks then 1 po qhs with food Active phentermine (Adipex-P) 37.5 MG tablet Take 1 (one) tablet by mouth once daily Active traZODone (Desyrel) 100 MG tablet Take 1 (one) tablet by mouth at bedtime 2 Active Active Problems Problem Noted Date Diagnosed Date Fibroid uterus 07/25/2015 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 Family History Medical History Relation Name Comments Arthritis - Rheumatoid Father Diabetes Paternal Grandmother Relation Name Status Comments Father Paternal Grandmother Social History Tobacco Use Types Packs/Day Years Used Date Smoking Tobacco: Former Smokeless Tobacco: Never Tobacco Cessation:Counseling Given: Not Answered Alcohol Use Standard Drinks/Week Comments Yes 0 (1 standard drink = 0.6 oz pur e alcohol) occ PHQ-2 Answer Date Recorded Patient Health Questionnaire-2 Score 0 10/14/2024 Comments No Sex and Gender Information Value Date Recorded Sex Assigned at Not on file 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 Gender Identity Not on file Sexual Orientation Not on file Occupation Industry Job Start Date Job End Date VA authorizations Not on file Not on file Not on kevyn e Last Filed Vital Signs Vital Sign Reading Time Taken Comments Blood Pressure 124/84 07/22/2023 11:14 AM CDT Pulse 71 09/06/2021 12:19 PM CDT Temperature 36.6 C (97.9 F) 09/06/2021 12:19 PM CDT Respiratory Rate 20 09/06/2021 12:19 PM CDT Oxygen Saturation 97% 08/07/2021 4:49 PM CDT Inhaled Oxygen Concentration - - Weight 83.5 kg (184 lb) 07/22/2023 11:14 AM CDT Height 157.5 cm (5' 2) 07/22/2023 11:14 AM CDT Body Mass Index 33.65 07/22/2023 11:14 AM CDT Plan of Treatment Health Maintenance Due Date Last Done Comments DTAP/TDAP/TD VACCINES (1 - Tdap) 12/30/2006 HEPATITIS B VACCINE (1 of 3 - 19+ 3-dose series) 12/30/2006 HPV VACCINE (1 - 3-dose SCDM series) 12/30/2014 DEPRESSION SCREENING 05/13/2024 07/22/2023 COVID-19 VACCINE (1 - 2023-2 5 season) 2025 INFLUENZA VACCINE (#1) 2025 PAP with HPV 07/21/2028 07/22/2023 ZOSTER VACCINE (1 of 2) 12/30/2037 HEPATITIS C SCREENING Completed 01/26/2016 HIV SCREENING Completed 01/26/2016 HIB VACCINE Aged Out No longer eligi ble based on patient's age to complete this topic MENINGOCOCCAL (Group B) VACC INE SHARED DECISION-MAKING Aged Out No longer eligibl e based on patient's age to complete this topic MENINGOCOCCAL GROUPS A/C/Y/W VACCINE Aged Out No longer eligible b ased on patient's age to complete this topic PNEUMOCOCCAL VACCINE Aged Out No long er eligible based on patient's age to complete this topic Medical Devices Implanted Type Area Water Pollution Control Inspector Device Identifier Shelf Expiration Date Model / Serial / Lot Mesh Srg Ventralight St Sepra 8x6in Implanted:Qty: 1 on 08/07/2021 by Robert Max MD at [facility] Abdomen [employer] 12/07/2022 [id number] / / [id number] Sys Fx 37cm Cpsr Str Ss Peek Perm Hndl Implanted:Qty: 1 on 08/07/2021 by Robert Max MD at [facility] N/A: Abdomen [employer] 06/09/2023 [id number] / / [id number] Procedures Procedure Name Priority Date/Time Associated Diagnosis Comments HPV DETECTION HIGH RISK SERA Routine 07/22/2023 11:51 AM CDT Well woman exam with routine gynecological exam HEPATITIS C AB W/RFLX TO HCV RNA QN PCR Routine 01/26/2016 11:42 AM CDT HIV-1 HIV-2 ANTIGEN/ANTIBODY Routine 01/26/2016 11:42 AM CDT from Last 3 Months or Most Recently Relevant to Health Maintenance Results * HPV DETECTION HIGH RISK SERA (07/22/2023 11:51 AM CDT) High Risk Human Papilloma Result Not detected Not detected 07/25/2023 9:12 AM CDT [facility] High Risk Human Papilloma Interp 07/25/2023 9:12 AM CDT [facility] Comment:High Risk Human Oleg lloma Virus was Not Detected. Pathology/Cytolo gy MISCELLANEOUS SAMPLES / Unknown 07/22/2023 11:51 AM CDT 07/23/2023 11:47 AM CDT Narrative [facility] - 07/25/2023 9:12 AM CDT Nucleic acid isolated from the specimen was analyzed with a nucleic acid amplification test (FDA approved Gen-Probe HPV Assay) to detect high risk human papilloma virus (Types: 16, 18, 31, 33, 35, 39, 45, 51, 52, 56, 58, 59, 66, and 68). The reference range is Not Detected. Comment: These test results should not be used as the sole basis for clinical assessment and treatment of patients. These results should always be correlated with other available data (cytology, histology, and clinical information). Cristo Sherwood MD LAB - MICROBIOLOGY ORDERABL ES Final Result [facility] [address] [phone] * HIV-1 HIV-2 ANTIGEN/ANTIBODY (01/26/2016 11:42 AM CDT) Pathologist [facility] HIV Antigen/Antibody 4th Generation NON-REACT IVY NON-REACT IVY [employer] ([facility]) Comment: HIV-1 antigen and HIV-1/HIV-2 antibodies were not detected. There is no laboratory evidence of HIV infection. PLEASE NOTE: This information has been disclosed to you from records whose confidentiality may be protected by state law. If your state requires such protection, then the state law prohibits you from making any further disclosure of the information without the specific written consent of the person to whom it pertains, or as otherwise permitted by law. A general authorization for the release of medical or other information is NOT sufficient for this purpose. For additional information please refer to http://education.[facility].com/faq/GAO975 (This link is being provided for informational/ educational purposes only.) The performance of this assay has not been clinically validated in patients less than 2 years old. Test Performed at: [facility] [address] [place] [address] HERLINDA AYALA DO,MPH 01/26/2016 11:4 2 AM CDT 01/26/2016 11:43 AM CDT Cristo Sherwood MD LAB - HEMATOLOGY ORDERABLES Edited Result - Final Performing Organization Address [facility] Co de Phone Number [facility] ([facility]) [address] * HEPATITIS C AB W/RFLX TO HCV RNA QN PCR (01/26/2016 11:42 AM CDT) Hepatitis C Antibody NON-REACTI VE NON-REACT IVY [facility] ([facility]) Signal/Cutoff 0.05 <1.00 [facility] (U) Comment: Test Performed at: [facility] [address] [place] [address] HERLINDA AYALA DO,MPH 01/26/2016 11:4 2 AM CDT 01/26/2016 11:43 AM CDT Cristo Sherwood MD LAB - CHEMISTRY ORDERABLES Edited Result - Final Performing Organization Address [facility] Co de Phone Number [facility] ([facility]) [address] from Last 3 Months or Most Recently Relevant to Health Maintenance Insurance ANTH Advance Directives * Full Code (Latest Code Status on File) Date Activated Date Inactivated Comments 07/28/2015 3:20 PM 07/30/2015 1:17 PM Care Teams Ecommerce Merchandising Manager Relationship Specialty Start Date End Date Gaye Jeffers MD [address] [place] [address] [place] [id number] PCP - General 11/25/18 Celia Galicia, RN Library Historian 07/29/15
--- OUTSIDE RECORDS SUMMARY | 2025-01-25 14:13 | XMS_ITS | Encounter Summary ---
Author Organization [facility] Address [address] [place] [address] Care Team Providers Care Principal System Software Engineer Name Role Phone Celia Galicia RN Unavailable [phone] Gaye Jeffers MD Primary Care Provider [phone] Encounter Details Date Type Department Care Team (Late st Contact Info) Description 07/20/2021 Telephone [facility] [address] [place] [address] Robert Max MD [address] [facility] [address] [facility] [place] [id number] Social History Tobacco Use Types Packs/Day Years Used Date Smoking Tobacco: Former Smokeless Tobacco: Never Comments:light tobacco smoke r in the past Alcohol Use Standard Drinks/Week Comments Yes 7 (1 standard drink = 0.6 oz pur e alcohol) Comments No Sex and Gender Information Value Date Recorded Sex Assigned at Not on file 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 Answer Date of Assessment Author No 07/28/2015 8:00 PM CDT Darrell Robertson RN * Is person blind or have serious difficulty seeing? Answer Date of Assessment Author No 07/28/2015 8:00 PM Darrell Link RN * Does person have serious difficulty walking/climbing stairs? Answer Date of Assessment Author No 07/28/2015 8:00 PM Darrell Link RN * Does person have difficulty dressing/bathing? Answer Date of Assessment Author No 07/28/2015 8:00 PM Darrell Link RN * Does person have difficulty doing errands alone? Answer Date of Assessment Author No 07/28/2015 8:00 PM Darrell Link RN documented as of this encounter Mental Status * Does person have difficulty concentrating/remembering/making decisions? Answer Entry Date Author No 07/28/2015 8:00 PM Darrell Link RN documented in this encounter Plan of Treatment Not on file documented as of this encounter Visit Diagnoses Not on filedocumented in this encounter Care Teams Principal System Software Engineer Relationship Specialty Start Date End Date Gaye Jeffers MD [address] [place] [address] [place] [id number] PCP - General 11/25/18 Celia Galicia RN Logging Crew Supervisor 07/29/15 documented as of this encounter
--- OUTSIDE RECORDS SUMMARY | 2025-01-25 14:13 | XMS_ITS | Encounter Summary ---
Author Organization [facility] Address [address] [place] [address] Care Team Providers Care Clinical Lab Scientist Name Role Phone Celia Galicia RN Unavailable Gaye Jeffers MD Primary Care Provider [phone] Reason for Visit * Reason Onset Date Comments Appointment 09/02/2023 Encounter Details Date Type Department Care Team (Late st Contact Info) Description 09/02/2023 Telephone [facility] [address] 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 Answer Date of Assessment Author No 07/28/2015 8:00 PM CDT Darrell Robertson RN * Does person have difficulty dressing/bathing? Answer Date of Assessment Author No 07/28/2015 8:00 PM CDT Darrell Robertson RN * Does person have difficulty doing errands alone? Answer Date of Assessment Author No 07/28/2015 8:00 PM CDT Darrell Robertson RN documented as of this encounter Mental Status * Does person have difficulty concentrating/remembering/making decisions? Answer Entry Date Author No 07/28/2015 8:00 PM CDT Darrell Robertson RN documented in this encounter Miscellaneous Notes * Telephone Encounter - Jordyn You RN - 09/02/2023 2:07 PM CDT RN returned call to pt. Pt said she is to have an US but has not received a call. RN can see NHAN note pt to have US and tubal study same time. Pt on CD 5. RN went over Dr. Sherwood out of office x 2 weeks so would not be able to do this cycle. Pt aware these are done CD 7-10. Pt made aware to call us back next cycle CD 1 and we can schedule then. Pt agreeable to plan * Telephone Encounter - Tran Wade - 09/02/2023 1:56 PM CDT Pt would like to schedule vaginal ultrasound. documented in this encounter Plan of Treatment Not on file documented as of this encounter Visit Diagnoses Not on filedocumented in this encounter Care Teams Clinical Lab Scientist Relationship Specialty Start Date End Date Gaye Jeffers MD [address] [place] [address] PCP - General 11/25/18 Celia Galicia, RN Engine Repairer Production 07/29/15 documented as of this encounter
[2025-01-26 07:09] LABS: Triiodothyronine (T3), Free 24.5 pg/mL (2.0-4.4)
== END 2025-01-25 12:12 | disposition home or self-care (01) ==
LOC: ANHLAB 12:12
PROVIDERS: PCP Nurse Practitioner Family; Visit Provider Internal Medicine Endocrinology, Diabetes & Metabolism
DX: E05.90 Thyrotoxicosis, unspecified without thyrotoxic crisis or storm (principal); E55.9 Vitamin D deficiency, unspecified; E04.9 Nontoxic goiter, unspecified
CPT/HCPCS: 36415; 80053; 82306; 83520; 84439; 84443; 84445; 84481; 84703; 85027

== ENCOUNTER 2025-02-26 15:13 | Emergency (ER) | payer BC, SELFPAY ==
[2025-02-26 15:15] VITALS: BP 144/75; PULSE 95; RESP 14; TEMP 37; O2SAT 100
--- NOTE | 2025-02-26 15:22 | ED.FEMALEGU ---
HPI - Female Genitourinary General Chief complaint: Urogenital-Female Stated complaint: UTI Time Seen by Provider: 02/26/25 15:22 Source: patient, RN notes reviewed and old records reviewed Mode of arrival: ambulatory Limitations: no limitations History of Present Illness HPI Narrative: 39-year-old female presents to the [facility] with concerns for UTI. Started with low back pain about 2 weeks ago. States that she has 1-2 days ago started with suprapubic pressure, frequency and urgency. Denies burning. Denies any nausea or vomiting. Denies abdominal pain or fevers. Last menstrual period 3-4 weeks ago. Related Data Home Medications ?Medication ?Instructions ?Recorded ?Confirmed ?Last Taken ?Type cholecalciferol (vitamin D3) 1,250 1,250 mcg PO WEEKLY 01/25/25 02/26/25 Unknown History mcg (50,000 unit) capsule Allergies Allergy/AdvReac Type Severity Reaction Status Date / Time No Known Allergies Allergy Verified 02/26/25 15:15 Review of Systems Review of Systems: All systems reviewed & are unremarkable except as noted in HPI and below Constitutional: Constitutional: Reports no additional constitutional complaints ENT: Reports system reviewed and no additional complaints, except as documented Cardiovascular: Cardiovascular: Reports no additional cardiovascular complaints, Denies chest pain and Denies dyspnea Respiratory: Respiratory: Reports no additional respiratory complaints, Denies chest congestion, Denies cough and Denies dyspnea Genitourinary: Genitourinary: Reports as per HPI Musculoskeletal: Musculoskeletal: Reports no additional musculoskeletal complaints Integumentary/Breasts: Skin/Breast: Reports system reviewed and no additional complaints, except as docu [facility] Surgical History Surgical History History of myomectomy Family History Family History Father Hypertension Heart problem Grandparent Diabetes mellitus Hypertension Grandparent Thyroid disorder Social History Social History Smoking status: Never smoker Alcohol intake: current Comments At the time of my signature, I reviewed and agree with the nursing past medical, surgical, social, and family history. There is no relevant family history pertinent to the patient complaint. Exam Const: General: cooperative, healthy appearing, comfortable, no acute distress, well developed, alert and well nourished Nutritional Appearance: well nourished Orientation/consciousness: patient oriented x3 Limitations: no limitations HENMT: Head: normal to inspection Eyes: General: appearance normal, both eyes and all related structures Alignment and Position: alignment normal Neck: Neck: normal visual inspection, full ROM, no lymphadenopathy and no meningeal signs Chest: Chest palpation & inspection: normal inspection of the chest Resp: Effort & Inspection: normal respiratory effort and able to speak in complete sentences Auscultation: clear to auscultation bilaterally, no crackles, no rales, no rhonchi and no wheezes Cardio: Rate: regular rate GI: GI Palp: No abdominal tenderness : General: Yes no CVA tenderness Skin: General skin exam: normal color and no rashes or lesions noted Neuro: General: patient oriented x3, gait normal, moves all extremities and no meningeal signs Cognition (Neuro): normal cognition Speech: normal speech Gait exam (Neuro): Normal gait present Extrem: General: normal to inspection, full ROM, capillary refill normal and normal gait Psych: Appearance: grossly normal and well kempt Mental Status: mental status grossly normal Speech and movement: Normal speech and movement present and Clear speech present Affect: normal affect Attitude: cooperative Course Course Level of Care: Express Care Visit Vital Signs Vital signs: Vital Signs Temperature 98.6 F 02/26/25 15:15 Pulse Rate 95 02/26/25 15:15 Respiratory Rate 14 02/26/25 15:15 Blood Pressure 144/75 H 02/26/25 15:15 Pulse Oximetry 100 02/26/25 15:15 Temperature 98.6 F 02/26/25 15:15 Pulse Rate 95 02/26/25 15:15 Respiratory Rate 14 02/26/25 15:15 Blood Pressure 144/75 H 02/26/25 15:15 Pulse Oximetry 100 02/26/25 15:15 Reviewed MDM - Female Genitourinary MDM Narrative Medical decision making narrative: Patient sitting in exam. Patient is nontoxic, vitals are stable. Patient presents with concerns for UTI. Positive nitrites, positive leukocytes, will cover with an antibiotic, Augmentin. Patient has a negative test urine. Patient's urine sent for culture. No acute findings noted on exam Patient is appropriate for outpatient treatment with close follow-up Discharge instructions reviewed with patient, as well as provided in writing per nursing staff. The instructions also include specific and strict return/GO TO THE ER as well as f/u information. All questions have been answered, and the patient deny any further questions with discharge and discharge plan. Some parts of this dictation were generated by voice recognition software and may contain typographical and/or grammatical inaccuracies. Differential Diagnosis Differential diagnosis: Likely urinary tract infection and cystitis Lab Data Labs: Lab Results 02/26/25 Range/Units 15:42 POC Urine Color [place] POC Urine Clarity Clear POC Urine pH 5.5 POC Ur Specif [place] 1.030 POC Urine Protein Negative (Negative) POC Ur Glucose (UA) Negative (Negative) POC Urine Ketones Negative (Negative) POC Urine Blood Negative (Negative) POC Urine Nitrite Positive (Negative) POC Urine Bilirubin Negative (Negative) POC Urine Urobilinogen 0.2 POC U Leukocyte Esteras Trace (Negative) POC Urine HCG, Qual Negative (Negative) Reviewed Critical Care Time Critical Care Time Critical Care Time: No Discharge Plan Discharge Clinical Impression: Urine test negative Urinary tract infection Qualifiers: Urinary tract infection type: acute cystitis Hematuria presence: without hematuria Qualified Code(s): N30.00 - Acute cystitis without hematuria Patient Disposition: Home Condition: Stable Instructions: Antibiotic Form, Urinary Tract Infection in Women (DC) Additional Instructions: Increased water intake Take Tylenol as needed for pain Take antibiotic as prescribed Today your urine dip showed a probability of a UTI. You have been prescribed an antibiotic. Your urine will be sent to our lab for a culture. If at that time a bacteria grows that is not covered by the antibiotic prescribed you will be notified. Follow-up with primary care For new or worsening symptoms go directly to the emergency room Patient Language: Mongolian Prescriptions: New amoxicillin-pot clavulanate 875-125 mg tablet 1 tablet PO Q12H Qty: 10 0RF No Action cholecalciferol (vitamin D3) 1,250 mcg (50,000 unit) capsule 1,250 mcg PO WEEKLY Follow-up/Referrals: Xiomara,Ghazal Roblero EDIPHONE OPERATOR [Primary Care Provider, Unknown] - 1 Week Stand Alone Forms: Work/School Release IP Time of Disposition: 15:43
[2025-02-26 15:47] LABS: EDUAAPPEAR Clear; EDUABILI Negative (Negative); EDUABLOOD Negative (Negative); EDUACOLOR1 Orange; EDUAGLUCOSE Negative (Negative); EDUAKETONE Negative (Negative); EDUALEUKO Trace (Negative); EDUANITRATE Positive (Negative); EDUAPH 5.5; EDUAPROTEIN Negative (Negative); EDUASPGRAVITY 1.030; EDUAUROBILI 0.2
[2025-02-26 16:09] LABS: BEDSIDEPREGUCG Negative (Negative)
== END 2025-02-26 15:55 | disposition home or self-care (01) ==
PROVIDERS: Emergency Provider Nurse Practitioner; PCP Nurse Practitioner Family
DX: N30.00 Acute cystitis without hematuria (principal); Z32.02 Encounter for pregnancy test, result negative
CPT/HCPCS: 81003; 81025; 87086; 99213; G0463

== ENCOUNTER 2025-04-05 16:46 | Outpatient (CLI) | payer BC, SELFPAY ==
[2025-04-05 12:04] LABS: Hematocrit 40.2 % (37.0-47.0); Hemoglobin 12.4 g/dL (12.0-15.0); Immature Granulocyte Percent A 0.2 % (0-0.5); Lymphocytes Absolute Auto 3.70 K/mm3 (0.9-3.2); Mean Corpuscular HGB Conc 30.8 g/dl (32-36); Mean Corpuscular Hemoglobin 22.1 pg (26-34); Mean Corpuscular Volume 71.8 fl (80-100); Nucleated Red Blood Cells Absolute Auto 0.000 K/mm3 (0.0-0.012); Nucleated Red Blood Cells Perc 0.0 % (0.0-0.2); Platelet Count Result 552 k/mm3 (150-375); Red Blood Count 5.60 M/mm3 (4.2-5.4); White Blood Count 9.1 K/mm3 (4.5-10.0)
[2025-04-05 12:24] LABS: Alanine Aminotransferase 27 U/L (6-35); Albumin Level 4.4 g/dL (3.5-5.1); Alkaline Phosphatase 194 U/L (38-126); Anion Gap 9 mmol/L (4-12); Aspartate Amino Transferase 38 U/L (14-36); Bilirubin,Total 1.2 mg/dL (0.2-1.3); Blood Urea Nitrogen 12 mg/dL (7-17); Calcium 9.5 mg/dL (8.4-10.2); Carbon Dioxide 23 mmol/L (22-30); Chloride 104 mmol/L (98-107); Estimated Glomerular Filt Rate > 60; Glucose 84 mg/dL (65-110); Potassium 4.1 mmol/L (3.4-5.0); Sodium 136 mmol/L (137-145); Total Protein 8.6 g/dL (6.3-8.2)
[2025-04-05 12:29] LABS: Microcytosis 1+ (NORMAL); Ovalocytes Occasional; Schistocytes Occasional
[2025-04-05 12:39] LABS: Free T4 Free Thyroxine 4.36 ng/dL (0.78-2.19)
[2025-04-05 12:55] LABS: Thyroid Stimulating Hormone < 0.015 uIU/mL (0.465-4.680)
--- OUTSIDE RECORDS SUMMARY | 2025-04-05 13:37 | XMS_ITS | Clinical Summary ---
Author Organization [facility] Address [address] [place] [address] Care Team Providers Care Contract Designer Name Role Phone Celia Galicia RN Unavailable [phone] Gaye Jeffers MD Primary Care Provider [phone] [facility],non-owned Affiliates and Associated Physician Practices is amultiple site organization consisting of ambulatory clinics and hospital sitesin [place], [place], [place]. This disclosure is being madepursuant to the Care Everywhere program and may not contain all information available regarding this patient. Last updated 18.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 Gender Identity Not on file Sexual Orientation [...] SCREENING 05/13/2024 07/22/2023 COVID-19 VACCINE (1 - 2024-2 6 season) 2025 INFLUENZA VACCINE (#1) 2025 PAP SMEAR 07/21/2026 07/22/2023, 12/24/2017, 03/09/2015 Cervical Cancer Screening 07/21/2028 PAP with HPV 07/21/2028 07/22/2023 ZOSTER VACCINE (1 of 2) 12/30/2037 HEPATITIS C SCREENING Completed 01/26/2016 HIV SCREENING Completed 01/26/2016 HIB VACCINE Aged Out No longer eligi ble based on patient's age to complete this topic MENINGOCOCCAL (Group B) VACCINE SHARED DECISION-MAKING Aged Out No longer eligible based on patient's age to complete this topic MENINGOCOCCAL GROUPS A/C/Y/W VACCINE Aged Out No longer eligible b ased on patient's age to complete this topic PNEUMOCOCCAL VACCINE Aged Out No long er eligible based on patient's age to complete this topic Medical Devices Implanted Type Area Supervising Airplane Pilot Device Identifier Shelf Expiration Date Model / Serial / Lot Mesh Srg Ventralight St Sepra 8x6in Implanted:Qty: 1 on 08/07/2021 by Robert Max MD at [facility][note 3] Abdomen [employer] 12/07/2022 [id number] / / [id number] Sys Fx 37cm Cpsr Str Ss Peek Perm Hndl Implanted:Qty: 1 on 08/07/2021 by Robert Max MD at [facility][note 3] N/A: Abdomen [employer] 06/09/2023 [id number] / / [id number] Procedures Procedure Name Priority Date/Time Associated Diagnosis Comments PAP IMAGE-GUIDED W HPV+CT/NG Routine 07/22/2023 11:51 AM CDT Well woman exam with routine gynecological exam HPV DETECTION HIGH RISK SERA Routine 07/22/2023 [...] detected Not detected 07/25/2023 9:12 AM CDT [facility] High Risk Human Papilloma Interp 07/25/2023 9:12 AM CDT [facility] Comment:High Risk Human Oleg lloma Virus was Not Detected. Pathology/Cytolo gy MISCELLANEOUS SAMPLES / Unknown 07/22/2023 11:51 AM CDT 07/23/2023 11:47 AM CDT Narrative [facility] - 07/25/2023 9:12 AM [...] LAB - MICROBIOLOGY ORDERABL ES Final Result [facility] [address] [phone] * PAP IMAGE-GUIDED W HPV+CT/NG (07/22/2023 11:51 AM CDT) Case Report Gynecologic Cytology Report Case: [id number] Authorizing Provider: Cristo Sherwood MD Collected: 07/22/2023 11:51 AM Ordering Location: [facility] - Received: 07/23/2023 11:47 AM MARKETING DIRECTOR First Screen: Chris Paulson Specimen: THINPREP - IMAGE GUIDED, Cervix/Endocervix 07/29/2023 11:40 AM CDT [facility] LMP 07/13/23 07/29/2023 11:40 AM CDT [facility] Menstrual Status None Applicable 11:40 AM CDT [facility] Specimen Adequacy Satisfactory for evaluation, endocervical/trans formation zone component present. 07/29/2023 11:40 AM CDT [facility] Categorization Negative for intraepithelial lesion or malignancy. 07/29/2023 11:40 AM CDT [facility] Interpretation TOOL DRAWING CHECKER Negative for intraepithelial lesion or malignancy. 07/29/2023 11:40 AM CDT [facility] at 1140 CDT Other Predominance of Coccobacilli consistent with shift in vaginal adelia (vaginosis). 07/29/2023 11:40 AM CDT [facility] Pap Footnote The Pap Smear is a screening test. False positive and false negative results occur. Negative results do not preclude abnormalities, thus clinical correlation is required. This specimen was evaluated by the ThinPrep Imaging System along with an additional manual rescreening by a ophthalmic assistant and/or pathologist. 07/29/2023 11:40 AM CDT [facility] Embedded Images 11:40 AM CDT [facility] Pathology/Cytolo gy MISCELLANEOUS SAMPLES / Unknown 07/22/2023 11:51 AM CDT 07/23/2023 11:47 AM CDT Cristo Sherwood MD LAB - PATHOLOGY/CYTOLOGY OR DERABLES Final Result [facility] [address] [place] [address], [facility] [phone] * HIV-1 HIV-2 ANTIGEN/ANTIBODY (01/26/2016 11:42 AM CDT) HIV Antigen/Antibody 4th Generation NON-REACT IVY NON-REACT IVY [facility] ([facility]) Comment: HIV-1 antigen and HIV-1/HIV-2 antibodies were [...] purpose. For additional information please refer to http://education.Bunchball/faq/AJF463 (This link is being provided for informational/ educational purposes only.) The performance of this assay has not been clinically validated in patients less than 2 years old. Test Performed at: [facility] [id number] [id number] HERLINDA AYALA DO,MPH 01/26/2016 11:4 2 AM CDT 01/26/2016 11:43 AM CDT Cristo Sherwood MD LAB - HEMATOLOGY ORDERABLES Edited Result - Final Performing Organization Address City/[facility]/ZIP Co de Phone Number [facility] ([facility]) [address] * HEPATITIS C AB W/RFLX TO HCV RNA QN PCR (01/26/2016 11:42 AM CDT) Hepatitis C Antibody NON-REACTI VE NON-REACT IVY [facility] ([facility]) Signal/Cutoff 0.05 <1.00 [facility] ([facility]) Comment: Test Performed at: [facility] [id number] [id number] HERLINDA AYALA DO,MPH 01/26/2016 11:4 2 AM CDT 01/26/2016 11:43 AM CDT Cristo Sherwood MD LAB - CHEMISTRY ORDERABLES Edited Result - Final Performing Organization Address City/[facility]/ZIP Co de Phone Number [facility] ([facility]) [address] from Last 3 Months or Most Recently Relevant to Health Maintenance Insurance ANTHEM Advance Directives * Full Code (Latest Code Status on File) Date Activated Date Inactivated Comments 07/28/2015 3:20 PM 07/30/2015 1:17 PM Care Teams Contract Designer Relationship Specialty Start Date End Date Gaye Jeffers MD [address] [place] [address] [place] [address] PCP - General 11/25/18 Celia Galicia, RN Wood Carving Machine Operator 07/29/15
--- OUTSIDE RECORDS SUMMARY | 2025-04-05 13:37 | XMS_ITS | Encounter Summary ---
Author Organization [facility] Address [address] [facility] [place] [address] Care Team Providers Care Machine Helper Name Role Phone Celia Galicia RN Unavailable [phone] Gaye Jeffers MD Primary Care Provider [phone] Reason for Visit * Reason Onset Date Comments Appointment 09/02/2023 Encounter Details Date Type Department Care Team (Late st Contact Info) Description 09/02/2023 Telephone [facility] - SUPERVISOR ELEMENTARY EDUCATION [address] [facility] [address] [place] [address] Cristo Sherwood MD [address] [facility] [address] [place] [address] Appointment Social History Tobacco Use [...] on file 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 [address] PCP - General 11/25/18 Celia Galicia, RN Open Hearth Door Liner 07/29/15 documented as of this encounter
--- OUTSIDE RECORDS SUMMARY | 2025-04-05 13:37 | XMS_ITS | Encounter Summary ---
Author Organization [facility] Address [address] [place] [address] Care Team Providers Care Cycling Instructor Name Role Phone Celia Galicia RN Unavailable [phone] Gaye Jeffers MD Primary Care Provider [phone] Encounter Details Date Type Department Care Team (Late st Contact Info) Description 07/20/2021 Telephone [facility] [address] [place] [address] Robert Max MD [address] [facility] [address] [facility] [place] [phone] Social History Tobacco Use Types Packs/Day Years Used Date Smoking Tobacco: Former Smokeless Tobacco: Never Comments:light tobacco smoke r in the past Alcohol Use Standard Drinks/Week Comments Yes 7 (1 standard drink = 0.6 oz pur e alcohol) Comments No Sex and Gender Information Value Date Recorded Sex Assigned at Not on file 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 [id number] PCP - General 11/25/18 Celia Galicia RN Morning Show Host 07/29/15 documented as of this encounter
[2025-04-05 17:40] LABS: Free T3 16.60 pg/mL (2.32-6.09)
--- OUTSIDE RECORDS SUMMARY | 2025-04-05 18:32 | XMS_ITS | Clinical Summary ---
Author Organization [facility] Address [address] [place] [address] Care Team Providers Care Economic Development Manager Name Role Phone Celia Galicia RN Unavailable [phone] Gaye Jeffers MD Primary Care Provider [phone] Source Comments [facility],non-owned Affiliates and Associated Physician Practices is amultiple site organization consisting of ambulatory clinics and hospital sitesin [place], [place], [place] and [place]. This disclosure is being madepursuant to the Care Everywhere program and may not contain all information available regarding this patient. 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 Gender Identity Not on file Sexual Orientation [...] this topic Medical Devices Implanted Type Area Fountain Attendant Device Identifier Shelf Expiration Date Model / Serial / Lot Mesh Srg Ventralight St Sepra 8x6in Implanted:Qty: 1 on 08/07/2021 by Robert Max MD at [facility] Abdomen [employer] 12/07/2022 [id number] / / [id number] Sys Fx 37cm Cpsr Str Ss Peek Perm Hndl Implanted:Qty: 1 on 08/07/2021 by Robert Max MD at [facility] N/A: Abdomen [employer] 06/09/2023 [id number] / / [id number] Procedures Procedure Name Priority Date/Time Associated Diagnosis [...] detected Not detected 07/25/2023 9:12 AM CDT [facility] High Risk Human Papilloma Interp 07/25/2023 9:12 AM CDT [facility] Comment:High Risk Human Oleg lloma Virus was Not Detected. Pathology/Cytolo gy MISCELLANEOUS SAMPLES / Unknown 07/22/2023 11:51 AM CDT 07/23/2023 11:47 AM CDT Narrative [facility] - 07/25/2023 9:12 [...] LAB - MICROBIOLOGY ORDERABL ES Final Result [facility] [address] [phone] * PAP IMAGE-GUIDED W HPV+CT/NG (07/22/2023 11:51 AM CDT) Case Report Gynecologic Cytology Report Case: [id number] Authorizing Provider: Cristo Sherwood MD Collected: 07/22/2023 11:51 AM Ordering Location: [facility] - Received: 07/23/2023 11:47 AM DISASTER RECOVERY SPECIALIST First Screen: Chris Paulson Specimen: THINPREP - [...] 11:40 AM CDT [facility] Interpretation LOOP CUTTER Negative for intraepithelial lesion or malignancy. 07/29/2023 [...] with an additional manual rescreening by a production manufacturing worker and/or pathologist. 07/29/2023 11:40 AM CDT [facility] Embedded Images 11:40 AM CDT [facility] Pathology/Cytolo gy MISCELLANEOUS SAMPLES / Unknown 07/22/2023 11:51 AM CDT 07/23/2023 11:47 AM CDT Cristo Sherwood MD LAB - PATHOLOGY/CYTOLOGY OR DERABLES Final Result [facility] [address] [place] [address], [facility] [phone] * HIV-1 HIV-2 ANTIGEN/ANTIBODY (01/26/2016 11:42 AM [...] purpose. For additional information please refer to http://education.Fast Asset/faq/DAO738 (This link is being provided for informational/ educational purposes only.) The performance of this assay has not been clinically validated in patients less than 2 years old. Test Performed at: [facility] [id number] [employer] [id number] HERLINDA AYALA DO,MPH 01/26/2016 11:4 2 AM CDT 01/26/2016 11:43 AM CDT Cristo Sherwood MD LAB - HEMATOLOGY ORDERABLES Edited Result - Final Performing Organization Address City/[facility]/ZIP Co de Phone Number [facility] ([facility]) [address] * HEPATITIS C AB W/RFLX TO HCV RNA QN PCR (01/26/2016 11:42 AM CDT) Hepatitis C Antibody NON-REACTI VE NON-REACT IVY [facility] ([facility]) Signal/Cutoff 0.05 <1.00 [facility] ([facility]) Comment: Test Performed at: [facility] [id number] [address] HERLINDA AYALA DO,MPH 01/26/2016 11:4 2 AM CDT 01/26/2016 11:43 AM CDT Cristo Sherwood MD LAB - CHEMISTRY ORDERABLES Edited Result - Final Performing Organization Address City/[facility]/ZIP Co de Phone Number [facility] ([facility]) [address] from Last 3 Months or Most Recently Relevant to Health Maintenance Insurance ANTHEM Advance Directives * Full Code (Latest Code Status on File) Date Activated Date Inactivated Comments 07/28/2015 3:20 PM 07/30/2015 1:17 PM Care Teams Economic Development Manager Relationship Specialty Start Date End Date Gaye Jeffers MD [address] [place] [address] [place] [address] PCP - General 11/25/18 Celia Galicia, RN Personnel Quality Assurance Auditor 07/29/15
--- OUTSIDE RECORDS SUMMARY | 2025-04-05 18:32 | XMS_ITS | Encounter Summary ---
Author Organization [facility] Address [address] [place] [address] Care Team Providers Care Power Marketer Name Role Phone Celia Galicia RN Unavailable [phone] Gaye Jeffers MD Primary Care Provider [phone] Reason for Visit * Reason Onset Date Comments Appointment 09/02/2023 Encounter Details Date Type Department Care Team (Late st Contact Info) Description 09/02/2023 Telephone [facility] - DESKTOP ENGINEER [address] [facility] [address] [place] [address] Cristo Sherwood MD [address] [facility] [address] [place] [address] Appointment Social History Tobacco Use [...] on file 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 [address] PCP - General 11/25/18 Celia Galicia, RN Front Desk Host 07/29/15 documented as of this encounter
--- OUTSIDE RECORDS SUMMARY | 2025-04-05 18:32 | XMS_ITS | Encounter Summary ---
Author Organization [facility] Address [address] [place] [address] Care Team Providers Care Pattern Finisher Name Role Phone Celia Galciia RN Unavailable [phone] Gaye Jeffers MD Primary Care Provider [phone] Encounter Details Date Type Department Care Team (Late st Contact Info) Description 07/20/2021 Telephone [facility] [address] [place] [address] Robert Max MD [address] [facility] [address] 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 [phone] PCP - General 11/25/18 Celia Galicia RN Chief Crew Scheduler 07/29/15 documented as of this encounter
--- OUTSIDE RECORDS SUMMARY | 2025-04-05 18:32 | XMS_ITS | Data Portability ---
Author Organization [facility] [employer] [facility], Main Office Address [address] [place] [address] Care Team Providers Care Chief Hospital Administrator Name Role Phone ARGENTINA JEFFERS Primary Care Provider ARGENTINA JEFFERS Referring Provider JOSE DEVLIN Landscape Account Manager [phone] JOSE DEVLIN Landscape Account Manager [phone] Assessment No assessment recorded. Plan of Treatment Reminders Order Date Submit Date Provider Last Modified By Organization Details Last Modified Time Details Appointments None recorded. Lab TSH + free T4, serum 2024 025 [facility], [address] [place], [address], 5 08:24:45 CBC w/ auto diff 2024 025 [facility], [address] [place], [address], 5 08:24:45 lipid panel, serum 2024 025 [facility] [place], [facility], [address] [place], [address], 5 08:24:45 CMP, serum or plasma 2024 025 [facility] [place], [address] [place], [address], 5 08:24:46 HbA1c (hemoglobi n A1c), blood 2024 025 [facility], [address] [place], [address], 5 08:24:46 vitamin D, 1,25-dihyd jody, serum 2024 025 [facility] - Outpatient [facility], [address] [place], [address], 5 15:18:29 Referral endocrinol ogy referral - Please call patient to schedule an appointmen t. Thank you. 2024 025 [email or web address] Cat James, [address], [place], [address], 5 08:48:24 physical therapist referral [email or web address] [place] [address] Physical Therapy, [address], [place], [address], 4 09:04:45 infertilit y reproducti ve endocrinol ogy referral - Please call patient to schedule an appointmen t. Thank you. 2023 024 [email or web address] [facility] [address], [address], 4 09:02:22 Procedures None recorded. Surgeries None recorded. Imaging MAMMO, screening, digital, bilateral - Please call patient to schedule. 2024 025 [email or web address] [facility], [address], [place], [address], 5 12:04:44 Medication Orders trazodone 50 mg tablet 2024 025 [id number], [address] [facility], [place], [place], [id number], 10:25:11 trazodone 100 mg tablet 2023 024 [facility][id number], [address], [place], [id number], 10:13:22 Zepbound 2.5 mg/0.5 mL subcutaneo us pen injector 2023 024 [facility] #22459, [address], [place], [id number], 17:08:20 sertraline 100 mg tablet 2023 024 [facility] #[id number], [address], [place], [id number], 10:13:18 Patient TargetsNo targets recorded. Patient InstructionsNo instructions recorded. Reason for Referral Physical Therapist Referral for Shoulder girdle weakness Referring Physician: [facility], Encounter Date: 03/17/2024 Infertility Reproductive End ocrinology Referral for Reproductive care management Please call patient to schedule an appointment. Thank you. Referring Physician: [facility], Encounter Date: 03/17/2024 Endocrinology Referral for H yperthyroidism Please call patient to schedule an appointment. Thank you. Referring Physician: [facility], Encounter Date: 06/22/2024 Results Created Date Observation Date Name Description Value Unit Range Abnormal Flag Note LastModifiedBy Organization Detail LastModifiedTime 08/06/19 24 08/06/2023 CT, abdom en + pelvi s, w/o contr ast No observ ation record ed. [email or web address] [place], [place] [address] [facility] [address], [place], [address], 08/08/2023 09:55:59 Result Notes None recorded. Problems Name Problem SNOMED Code Status Onset Date Resolution Date Notes Provider Name and Address Organization Details Recorded Time Contracture of joint of toe 611015577 Active 2018 Not Available [employer] 3 20:54:43 Palpitations 91435128 Active 2022 Argentina Jeffers MD [address], [place], [address] , [employer] [facility] 3 12:45:56 Idiopathic urticaria 45143084 Active 2022 JODIE Aaron [address], [address], [place], [address] , [employer] [facility] 3 09:55:45 Thrombocytosi s 8935853 Active 2022 Argentina Jeffers MD [address], [address], [place], [address] , [employer] [facility] 3 09:39:32 Insomnia 015330028 Active 2022 Argentina Jeffers MD [address], [place], [address] , [employer] [facility] 3 08:39:30 Chronic urticaria 50011741 Active 2022 Argentina Jeffers MD [address], [address], [place], [address] , [employer] [facility] 3 10:44:04 Anxiety 36994309 Active 2022 Argentina Jeffers MD [address], [place], [address] , [employer] [facility] 3 10:56:03 Fatigue 97987828 Active 2022 Argentina Jeffers MD [address], [place], [address] , [employer] [facility] 3 10:56:18 Vitamin D deficiency 56691980 Active 2022 Argentina Jeffers MD [address], [place], [address] , [place] [facility] 3 10:56:42 Mammography abnormal 527044658 Active 2022 Argentina Jeffers MD [address], [address], [place], [address] , [place] [facility] 3 17:39:44 Leukocytosis 875250410 Active 2022 Argentina Jeffers MD [address], [place], [address] , [place] [facility] 3 18:54:36 Hernia of anterior abdominal wall 491912104 Active 2022 Argentina Jeffers MD [address], [address], [place], [address] , [place] [facility] 3 18:55:34 Cough 92956342 Active 2022 Argentina Jeffers MD [address], [place], [address] , [place] [facility] 3 09:06:38 Pain in pelvis 22387149 Active 2023 Argentina Jeffers MD [address], [place], [address] , [place] [facility] 4 17:58:07 Uterine leiomyoma 48934036 Active 2023 Argentina Jeffers MD [address], [place], [address] , [place] [facility] 4 09:56:07 Acute urinary tract infection 711935823 Active 2023 Argentina Jeffers MD [address], [place], [address] , [place] [facility] 4 09:58:29 Mixed anxiety and depressive disorder 483901872 Active 2023 Argentina Jeffers MD [address], [place], [address] , [place] [facility] 4 10:01:29 Shoulder girdle weakness 161256940 Active 2023 LEANN Willis [address], [place], [address] , [employer] 4 11:17:02 Hyperthyroidi sm 75621143 Active 2024 LEANN Willis [address], [address], [place], [address] , [employer] 5 17:14:49 Liver enzymes level above reference range 419365941 Active 2024 LEANN Willis [address], [place], [address] , [employer] 5 08:44:15 Vaginal discharge 576693795 Active 2024 LEANN Willis [address], [place], [address] , [employer] 5 15:06:33 Acne 01072392 Active 2024 LEANN Willis [address], [place], [address] , [employer] 5 09:08:58 Candidal vulvovaginiti s 89157146 Active 2024 LEANN Willis [address], [address], [place], [address] , [employer] 5 09:31:03 Problem Notes None recorded. Procedures Surgical History Date Name Laterality Status Provider Name and Address Organization Details Recorded Time 6 Myomectomy abdom method completed Not Available [facility] 07/11/2022 20:54:12 9 Breast Biopsy completed Not Available [facility] 2022 20:54:12 Imaging Results None recorded. Procedure Notes None recorded. Medical Equipment None Reported. Allergies No known drug allergies Medications Name Sig Start Date Stop Date Status Note LastModified by Organization Details LastModified Time Prescriptio n - Prior Authorizati on Request active Not Available Not Available N ot Available cyclobenzap rine 10 mg tablet 02/09 completed Not Available Not Available Not Available trazodone 50 mg tablet Take 1 tablet every day by oral route at bedtime. 2024 active Not Available Not Available Not Avai lable azithromyci n 250 mg tablet TK 2 TS PO ON DAY 1, THEN TK 1 T PO D FOR 4 DAYS 08/07 completed Not Available Not Available Not Available fluconazole 150 mg tablet TAKE 1 TABLET BY MOUTH NOW. REPEAT IN 3 DAYS active Not Available Not Available No t Available hydrocodone 5 mg-acetamin ophen 325 mg tablet TAKE 1 TABLET BY MOUTH EVERY 6 HOURS NEEDED FOR PAIN 06/04 completed Not Available Not Available Not Available famotidine 40 mg tablet TAKE 1 TABLET BY MOUTH DAILY 08/11 completed Not Available Not Available Not Available prednisone 20 mg tablet 3 po qday x 3 days then 2 po qday x 3 days then 1 po qday x 3 days then 1/2 tab po qday x 3 days then stop 01/15 completed Not Available Not Available Not Available sertraline 100 mg tablet 2 po qday 08/11 completed Not Available Not Available Not Available metronidazo le 500 mg tablet TAKE 1 TABLET BY MOUTH TWICE DAILY FOR 7 DAYS active Not Available Not Available No t Available phentermine 37.5 mg tablet TAKE 1 TABLET BY MOUTH EVERY DAY 06/22 completed Not Available Not Available Not Available sulfamethox azole 800 mg-trimetho prim 160 mg tablet TK 1 T PO Q 12 H FOR 3 DAYS 09/01 completed Not Available Not Available Not Available tramadol 50 mg tablet 02/09 completed Not Available Not Available Not Available triamcinolo ne acetonide 0.1 % topical cream APPLY A THIN LAYER TO THE AFFECTED AREA(S) BY TOPICAL ROUTE 2 TIMES PER DAY prn active Not Available Not Available No t Available ketorolac 30 mg/mL (1 mL) injection solution Inject 1 mL every 6 hours by intramusc ular route. 07/22 completed Not Available Not Available Not Available levothyroxi ne 75 mcg tablet TAKE 1 TABLET BY MOUTH EVERY DAY IN THE MORNING active Not Available Not Available No t Available oxycodone-a cetaminophe n 5 mg-325 mg tablet TAKE 1 TABLET BY MOUTH EVERY 4-6 HOURS NEEDED FOR PAIN 02/09 completed Not Available Not Available Not Available trazodone 100 mg tablet TAKE 1 TABLET BY MOUTH EVERY NIGHT AT BEDTIME NEEDED FOR INSOMNIA 08/11 completed Not Available Not Available Not Available dicyclomine 20 mg tablet 03/17 completed Not Available Not Available Not Available prednisone 50 mg tablet TAKE 1 TABLET BY MOUTH DAILY 06/22 completed Not Available Not Available Not Available ergocalcife rol (vitamin D2) 1,250 mcg (50,000 unit) capsule Take 1 capsule every week by oral route. 2024 active Not Available Not Available Not Avai lable ibuprofen 600 mg tablet 07/22 completed Not Available Not Available Not Available polyethylen e glycol 3350 17 gram/dose oral powder Take 17 g every day by oral route. 03/17 completed Not Available Not Available Not Available methylpredn isolone 4 mg tablets in a dose pack FOLLOW PACKAGE DIRECTION S 08/07 completed Not Available Not Available Not Available ondansetron 4 mg disintegrat ing tablet DISSOLVE 1 TABLET ON THE TONGUE EVERY 8 HOURS NEEDED FOR NAUSEA OR VOMITING 08/11 completed Not Available Not Available Not Available amoxicillin 875 mg-potassiu m clavulanate 125 mg tablet TAKE 1 TABLET BY MOUTH TWICE DAILY FOR 10 DAYS 08/07 completed Not Available Not Available Not Available escitalopra m 10 mg tablet Take 1 tablet every day by oral route for 30 days. 08/07 completed Not Available Not Available Not Available cyclobenzap rine 5 mg tablet TK 1 T PO TID PRN active Not Available Not Available No t Available ID NOW COVID-19 Test Kit TEST DIRECTED 03/17 completed Not Available Not Available Not Available One-A-Day Women's Complete(vK ) 2020 active Not Available Not Available Not Avai lable Wegovy 0.25 mg/0.5 mL subcutaneou s pen injector ADMINISTE R 0.25 MG UNDER THE SKIN EVERY WEEK 06/22 completed Not Available Not Available Not Available Zepbound 2.5 mg/0.5 mL subcutaneou s pen injector Inject 0.5 mL every week by subcutane ous route. 06/22 completed Not Available Not Available Not Available Vitals Date Recorded Body height Body mass index (BMI) Body weight Body temperature Heart rate Oxygen saturation Systolic And Diastolic Provider Name and Address Organization Details Last Updated DateTime 5 157.48 cm 32.2 kg/m2 72709.2 6 g 98.2 [degF] 118 /min 97 % 144/76 mm[Hg] Zack Turner RN [facility] [employer] [facility] 5 17:00:17 Date Recorded Body height Body mass index (BMI) Body weight Body temperature Heart rate Oxygen saturation Pain severity - 0-10 verbal numeric rating [Score] - Reported Systolic And Diastolic Provider Name and Address Organization Details Last Updated DateTime 5 157.48 cm 30.5 kg/m2 09253.1 3 g 98.2 [degF] 104 /min 98 % 0 130/64 mm[Hg] Sienna Cruz MA [facility] [employer] [facility] 5 10:12:44 Date Recorded Body height Body mass index (BMI) Body weight Body temperature Heart rate Oxygen saturation Systolic And Diastolic Provider Name and Address Organization Details Last Updated DateTime 4 157.48 cm 33.8 kg/m2 01687.5 9 g 97.5 [degF] 89 /min 100 % 124/92 mm[Hg] Aisha Esparza RN [facility] [employer] [facility] 4 15:07:52 Date Recorded Body height Body mass index (BMI) Body weight Body temperature Heart rate Oxygen saturation Systolic And Diastolic Provider Name and Address Organization Details Last Updated DateTime 4 157.48 cm 34.6 kg/m2 62299.9 6 g 98.3 [degF] 106 /min 98 % 148/76 mm[Hg] Zack Turner RN [facility] [employer] [facility] 4 11:06:49 Social History Question Answer Notes LastModified by Organizat ion Details LastModified Time Tobacco Smoking Status Never Smoker Not Available [employer] 07/11/2022 20:54:09 What Is Your Level Of Caffeine Consumption? Heavy [id number] Information not available 07/11/2022 How Much Tobacco Do You Chew? None [id number] Information not available 07/11/2022 In The 14 Days Before Symptom Onset, Have You Had Close Contact With A Laboratory-confirm ed COVID-19 While That Case Was Ill? No [id number] Information not available 07/11/2022 In The 14 Days Before Symptom Onset, Have You Had Close Contact With A Person Who Is Under Investigation For COVID-19 While That Person Was Ill? No [id number] Information not available 07/11/2022 What Type Of Diet Are You Following? REGULAR [id number] Information not available 07/11/2022 Have There Been Any Changes To Your Family Or Social Situation? No Information no t available 08/11/2024 Are There Any Guns Present In Your Home? No [id number] Information not available 07/11/2022 Do You Use Insect Repellent Routinely? No Information not available 08/11/2024 Where Do You Live? Other Inform ation not available 08/11/2024 What Was The Date Of Your Most Recent Tobacco Screening? 08/11/2024 Information not available 08/11/2024 How Many Children Do You Have? 0 Information not available 08/11/2024 Do You Have Any Pets? Yes Information not available 08/11/2024 What Is Your Relationship Status? Single Information not available 08/11/2024 Do You Use Your Seat Belt Or Car Seat Routinely? Yes Information not available 08/11/2024 Do You Have Smoke And Carbon Monoxide Detectors In Your Home? Yes Information not available 08/11/2024 Are You Passively Exposed To Smoke? No Information no t available 08/11/2024 Are There Any Smokers In Your House? No Information not available 08/11/2024 Do You Participate In Social Media? Yes Information not available 08/11/2024 Do You Use Sunscreen Routinely? No Information not available 08/11/2024 Have You Recently Traveled Abroad? No Information not available 08/11/2024 Are You Currently In School? No Information not available 08/11/2024 Do You Have Any Dietary Restrictions? No [id number] Information not available 07/11/2022 Sex: Unknown Functional Status Question Answer Note LastModified by Organizat ion Details LastModified Time Do you use any illicit or recreational drugs? No Information not available 08/11/2024 Do you or have you ever used any other forms of tobacco or nicotine? No Information not available 08/11/2024 What is your level of alcohol consumption? Moderate [id number] Information not available 07/11/2022 Are you currently employed? 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 Occasional [id number] Information not available 07/11/2022 Mental Status Question Answer Note LastModified by Organization D etails LastModified Time Do you feel stressed (tense, restless, nervous, or anxious, or unable to sleep at night)? [id number] Information not available 08/11/2024 Family History Relationship Description Onset Age of this Age Resolved Age Notes LastModified by Organization Details LastModified Time Paternal Grandmother Diabetes mellitus [id number] Not available 07/11/2022 20:54:13 Unspecified Relation Malignant neoplasm of breast PATERN AL GREAT AUNT [id number] Not available 07/11/2022 20:54:13 Notes:Not sure of maternal s narinder diabetes - grandmother Medical History No medical history recorded. Gynecological History Statement/Question Response Abnormal Pap N Date of LMP 08/10/2024 Dislike of Light during Menstrual Headac he N STIs/STDs N Current Control Method None Breast Problems none How many live births 0 Sexually Active? Y Weight gain N Menses Monthly Y Date of Last Pap Smear Discharge none Obstetrics History GPAL:G 0 P 0 0 0 0 Type Value Multiple Births 0 Full Term 0 Induced 0 Spontaneous 0 Premature 0 Living 0 Ectopics 0 Total 0 Past Encounters Encounter ID Performer Location Encounter Start Date Encounter Closed Date Diagnosis/Indication Diagnosis SNOMED-CT Code Diagnosis ICD10 Code Diagnosis IMO Codes Diagnosis Note [id number] Argentina Jeffers MD [facility] Primary [place] [address] [place] [address] 07/14/2020 00:00:00 07/28/2020 14:06:14 [id number] Anatoliy goins MD [facility] General Surgery [address] [address] 07/26/2020 00:00:00 07/26/2020 13:23:05 [id number] Anatoliy goins MD [facility] General Surgery [address] [address] 08/09/2020 00:00:00 08/09/2020 11:32:28 [id number] Anatoliy goins MD [facility] General Surgery [address] [address] 02/09/2021 00:00:00 02/09/2021 13:45:53 [id number] Argentina Jeffers MD [facility] Primary Care [place] [address] [place] [address] 03/03/2021 00:00:00 03/03/2021 17:34:45 [id number] JODIE Aaron [facility] Primary Care [place] [address] [place] [address] 07/10/2021 00:00:00 07/10/2021 13:02:01 [id number] Argentina Jeffers MD [facility] Primary Care [place] [address] [place] [address] 02/26/2022 00:00:00 02/26/2022 09:08:55 [id number] Argentina Jeffers MD [facility] Primary Care [place] [address] [place] [address] 06/28/2022 00:00:00 07/08/2022 19:57:55 [id number] Argentina Jeffers MD [facility] Primary Care [place] [address] [place] [address] 08/07/2022 12:25:57 08/07/2022 12:58:20 Palpitations 15717744 R00.2 out of work Wed, Thurs, Fricheck labs and event monitorcal l/return if no improvemen t in 1-2 days or sooner if neededrevi ewed s/s that warrant urgent/kayla rgent eval in meantime [id number] Argentina Jeffers MD [facility] Primary Care [address] [place] [address] 09/24/2022 09:30:37 09/24/2022 10:16:37 [id number] Argentina Jeffers MD [facility] Care [address] [place] [address] 01/15/2023 10:33:04 01/15/2023 11:30:53 Chronic urticaria 26780430 L50.8 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 use fexofenadi ne 180 mg daily and famotidine 20 mg bid in meantime Anxiety 43742576 F41.9 recommend cognitive behavioral therapybeg in sertraline 100 mg 1/2 tab daily with food x 2 weeks then increase to 1 po qhsReviewe d potential med s/e, d/c and be seen if any si/hi Thrombocytosis 9884814 D 75.839 Fatigue 06256783 R53.83 Vitamin D deficiency 347 42426 E55.9 [id number] Argentina Jeffers MD [facility] Care [address] [place] [address] 03/27/2023 16:19:35 03/28/2023 17:14:56 Anxiety 99948803 F41.9 recommend cognitive behavioral therapybeg in sertraline 100 mg 1/2 tab daily with food x 2 weeks then increase to 1 po qhsReviewe d potential med s/e, d/c and be seen if any si/hi update 03/26/23: some improvemen t but not yet to baselinein crease sertraline 150 mg dailyf/u in 6 months or sooner if needed Leukocytosis 715380221 D 72.829 repeat cbc, will refer to hematology if still elevated Hernia of anterior abdominal wall 640271723 K43.9 hernia repair with mesh 2020, now pain with activityco ncern with hernia recurrence check ct abd/pelvis do not lift greater than 25 pounds [id number] Argentina Jeffers MD [facility] Primary Care [address] [place] [address] 08/08/2023 09:40:54 08/08/2023 10:31:19 Mammography abnormal 245028016 R92.8 reviewed results, stable, likely benignrepe at b/l US in November Uterine leiomyoma 425273 05 D25.9 has seen machinist 2nd shift, has testing upcoming Acute urin cristal tract infection 228375903 N39.0 reviewed ua from [facility] treat with bactrim ds po bid x 3 days Mixed anxi ety and depressive disorder 189843932 F41.8 out of work until released with estimated return to work date 09/09/23con tinue therapy-ju st startedinc rease sertraline 100 mg 2 tabs per dayf/u in 4 weeks [id number] Argentina Jeffers MD [facility] Primary Care [address] [place] [address] 09/02/2023 14:55:12 09/02/2023 16:20:17 Mixed anxiety and depressive disorder 575053615 F41.8 improving but not yet to baselineou t of work until releasedco ntinue therapycon tinue sertraline 100 mg 2 tabs per dayf/u in 4 weeks [id number] LEANN Willis [facility] Primary Care [address] [place] [address] 03/17/2024 10:59:03 03/17/2024 12:47:06 Insomnia 379230147 G47.00 Will refill medication s as listed below. Patient will follow up as needed. Mixed anxi ety and depressive disorder 269449280 F41.8 Denies SI/HI.Emmanuelle ent is going to see if Trazodone alone with help with her insomnia, if she is still struggling to sleep due to stress she will restart Sertraline . Discussed with patient to start by taking 1 tablet daily for one week then increasing to 2 tablets by mouth daily. Body mass index 30+ - obesity 203826598 Z68.34 Will start Zepbound as listed below, if covered by insurance. Discussed healthy diet and routine exercise. Shoulder g irdle weakness 853560387 M99.07 Reproducti ve care management 952939644 Z31.9 [id number] LEANN Willis [facility] Primary Care [facility] [address] [facility] [address] [place] [address] 06/22/2024 16:56:05 06/22/2024 17:20:32 Chronic urticaria 40362666 L50.8 patient provided with wood craftsman informatio n to follow up. Hyperthyroidism 79332582 E05.90 TSH 0.005 per patient, labs are suppose to be sent to our office. [id number] LEANN Willis [facility] Primary Care [address] [place] [address] 08/11/2024 10:06:22 08/11/2024 10:33:49 Adult health examination 108640454 Z00.00 Discussed medication compliance and routine follow up.Discuss ed healthy diet and routine exercise.Neelima toiewed vaccine records and made recommenda tions as needed.Enc ouraged annual eye and dental exams, as well as twice yearly dental cleanings. Will check screening labs as listed below. Thyroid di sorder screening 056048937 Z13.29 Insomnia [id number] G47.0 0 Will decrease Trazodone to 50mg QHS. Mammography abnormal [id number] R92.8 Body mass index 30+ - obesity [id number] Z68.34 Weight: 166 poundsBMI: 30.5Discus sed healthy diet and routine exercise. [id number] LEANN Willis [facility] Primary Care [facility] [address] [facility] [address] [place] [address] 10/20/2024 12:00:10 10/20/2024 12:13:04 Health Concerns Section Related Observation LastModified by Organization Detai ls LastModified Time None Recorded Concern Status LastModified by Organization Details LastModified Time None Recorded Advance Directives Directive None Recorded Payers Insurance Date Sequence Insurance Name Policy Number Policy Chao Covered Member ID Chao Member ID Guarantor Name 01/30/2025 1 [employer] 111 Mohamud Candelario [id number] Mohamud Ma 03/17/2024 PROGRESSIVE [id number] Mohamud Ma 03/17/2024 PROGRESSIVE [id number] [id number] Mohamud Ma Notes Date Note Type Note Provider Name and Address Organization Details Recorded Time 09/02/2023 text/html ROS as noted in the HPI had hernia repair and revision, now noticing pain in that area when active x the past 2 weeks, mostly on right side of abd. She has been taking her trazodone and sertraline as prescribed and notices some improvement but not yet to baseline. update 08/08/23: having increased left sided abd pain x several days. was seen in ER and nothing done, feels slightly better now but not resolved. Seeing machinist 2nd shift about her uterine fibroids, she has some testing scheduled after she finishes this period. In addition to chronic pain from the uterine fibroids that are causing pain and bleeding and making it difficult to conceive. She is fatigued, sleeping longer, low libido, extremely stressed, no si/hi. She is finding it difficult to work with her abd pain and depressive symptoms. She just established care with a therapist. update 09/02/23: has upcoming appt with machinist 2nd shift has noticed some improvement in sleep and mood on sertraline 200 mg daily + therapy. She is having some improved motivation. No si/hi. Not yet to baseline, does not feel ready to return to work yet, not able to handle complicated/stressf ul tasks. Argentina Jeffers MD [address] [place] [address], [place] [address], [place], [address], [facility] [employer] 09/14/2023 14:59:36 03/17/2024 text/html ROS as noted in the HPI Patient is a 38 year old female that presents to the office for follow up. Patient has been out of her medications for a month. Patient reports she is doing well without the Sertraline but is having issues sleeping at night since she has been out of the Trazodone. Patient reports she is sleeping about 2 hours each night consecutively. Patient also reports posterior shoulder discomfort and muscle weakness. Patient reports she has been getting routine massages that have been helpful with the soreness but would like to go to physical therapy for the weakness. Patient denies injury to area. Patient would like to start Phentermine for weight loss, patient reports she has taken it in the past with success. Patient's goal is to lose 20 pounds as she would like to try conceiving soon. Discussed other weight loss options with patient due to HR and BP at today's appt. Patient reports she is working on diet and exercise but has had a lot of increased stress in her life over the last year. LEANN Willis [address], [place], [address], [employer] 03/17/2024 11:34:37 06/22/2024 text/html ROS as noted in the HPI Patient is a 38 year old female that presents to the office for recurrent hives. Patient went to ER last week for hives, was given Prednisone 50mg daily for 5 days however symptoms have not improved. Patient reports Prednisone made her feel jittery and have heart palpitations. 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 Patient reports she has changed out soaps, detergents, and lotions independently and hives have not improved. Patient reports hives flare mostly at night time when she is in bed. Patient take Benadryl for the itching which is helpful. Patient reports she had some labs completed at a clinic and was told her TSH was low and she should contact her PCP. Patient is requesting a referral to endocrinology. LEANN Willis [address], [place], [address], [employer] 06/23/2024 09:00:22 08/11/2024 text/html ROS as noted in the HPI Patient is a 38 year old female that presents to the office for annual wellness. Patient reports she is doing well overall. Patient reports difficulty falling asleep again, started taking her Trazodone 100mg again and does not like the way it makes her feel, would like a lower dose. 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
== END 2025-04-05 16:47 | disposition home or self-care (01) ==
PROVIDERS: PCP Nurse Practitioner Family; Visit Provider Internal Medicine Endocrinology, Diabetes & Metabolism
DX: E05.90 Thyrotoxicosis, unspecified without thyrotoxic crisis or storm (principal)
CPT/HCPCS: 36415; 80053; 84439; 84443; 84481; 85025